=== PATIENT | female | born 1950 | race Caucasian/White ===

== ENCOUNTER → 2018-05-07 13:13 | Outpatient (CLI) | payer MEDICAID, SELFPAY ==
[2018-05-07 12:27] VITALS: BMI 26.9
--- NOTE | 2018-05-07 13:18 | RAD_ITS ---
STUDY: X-RAY CHEST REASON FOR EXAM: Female, 68 years old. Cough since January. Shortness of breath. Chest pain. TECHNIQUE: PA and lateral views of the chest. COMPARISON: Comparison is made with prior study dated August 21, 2015. FINDINGS: Hyperinflation. There is no demonstrated pleural abnormality. Normal size heart. Normal mediastinum and phillip. Normal visualized pulmonary arteries. There is atherosclerotic calcification of the aortic arch with tortuosity. There are degenerative changes of the visualized thoracic spine. Normal visualized ribs, clavicles, and shoulders. There is no demonstrated abnormality of the visualized soft tissue structures of the upper abdomen. RAD/Chest PA and Lateral IMPRESSION: Hyperinflation. Electronically Signed: Khadar Ponce MD at 13:57 EST Tel [phone], Service support ,
--- OUTSIDE RECORDS SUMMARY | 2018-08-09 | XMS RPT_ITS ---
:1950 Author Organization OHIP Care Team Providers Name Role Phone Renny Gar Attending Unavailable Renny Gar Referring Unavailable Renny Gar Primary Care Unavailable Beatriz Paarda Attending Unavailable Renny Gar Referring Unavailable Beatriz Parada Attending Unavailable Beatriz Parada Referring Unavailable Renny Gar Primary Care Unavailable Karyn Adams Attending Unavailable Niels Cordoba Attending Unavailable Renny Gar Referring Unavailable Renny Gar Primary Care Unavailable Beatriz Parada Attending Unavailable Renny Gar Referring Unavailable PROBLEMS PROBLEMS DATE TYPE CONDITION / CODE ATTENDING STATUS SOURCE 05/07/2018 Unknown R05 - Cough / [place], Active [place] R05(ICD-10) [facility] Repository 11/05/2017 Unknown R55 - Syncope and [place], Active [place] collapse / [facility] R55(ICD-10) Hospital Repository 11/05/2017 Unknown I49.1 - Atrial [place], Active [place] premature [facility] / Hospital I49.1(ICD-10) Repository 11/05/2017 Unknown E78.5 - [place], Active [place] Hyperlipidemia, [facility] unspecified / Hospital E78.5(ICD-10) Repository 11/05/2017 Unknown I10 - Essential [place], Active [place] (primary) [facility] hypertension / Hospital I10(ICD-10) Repository 07/11/2017 Admitting Disorder of thyroid, Rin, Active [facility] unspecified / [facility] E07.9(ICD-10) Repository PROCEDURES PROCEDURES No Procedure Records FoundRESULTS RESULTS PULMONARY VISIT REPORT Observed: 05/22/2018 Status: F Source: [place] 4:00 PM [facility] REPOSITORY [facility] [place] [address] [place] [address] OFFICE VISIT Date of Service: 05/22/18 MR#: [id number] Acct: [id number] Name: RAVI DEVLIN Rep #: [id number] : 1950 Provider: Beatriz Parada Age/Sex: 68/F [place] [facility] [place] Status: Signed Assessment AND Plan Problems 1. Cough R05 Plan Improved. No new for further medications, no maintenance medications. Patient can follow-up as needed. Contacted cardiology regarding chest burning and patient will follow up next week. Encouraged to go to the emergency department if symptoms worsen. HPI 2 W FU: Chief Complaint: Cough HPI Comments Details: This patient presents the office today to follow-up after recently being treated for bronchitis. She is amatory currently in room air. She states that her symptoms are significantly improved. Her shortness of breath is only present when walking up steps. She does occasionally have wheezing and chest tightness, most frequently when she is lying flat at night. She completed the prednisone taper as prescribed. She also completed the Dymista and stated that it was successful at controlling her postnasal drip and fortunately did not cause her a bloody nose as some previous nasal steroids have done. She also reports that Dymista did not cause her headache. She was pleased with the results. She does report that she has been experiencing a burning sensation in her chest for the past 3 weeks. She states that the burning is constant, nothing relieves it. She also reports that her blood pressure has been elevated when she is checking at home. On it was found to be 186/148 on her home device. It was also elevated on May 15 and then again on May 17. She states that she was having palpitations also at the time but did not notify her financial report service sales agent or her PCP as it was a holiday. She denies any lower extremity edema. She denies that the chest burning radiated anywhere. See complete review of systems. 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 Accompanied by: Self Is patient in pain?: No Allergies niacin Allergy (Severe, Verified 05/22/18 11:34) flushing amitriptyline [From Elavil] Adverse Reaction (Severe, Verified 05/22/18 11:34) Jaundice codeine Adverse Reaction (Severe, Verified 05/22/18 11:34) emesis nabumetone [From Relafen] Adverse Reaction (Severe, Verified 05/22/18 11:34) hematuria propoxyphene [From Darvon] Adverse Reaction (Severe, Verified 05/22/18 11:34) GERD pramipexole [From Mirapex] Adverse Reaction (Unknown, Verified 05/22/18 11:34) Unknown quinine Adverse Reaction (Verified 05/22/18 11:34) Other ropinirole HCl [From Requip] Adverse Reaction (Verified 05/22/18 11:34) Other Medications Albuterol Inhaler [Ventolin Hfa (SP)] 2 puff INHALATION Q6H PRN PRN 08/21/15 [History Confirmed 05/22/18] Lisinopril 30 mg PO DAILY 08/21/15 [History Confirmed 05/22/18] Pentazocine HCl/Naloxone HCl [Pentazocine-Naloxone Tablet] 25 mg PO 4X/DAY PRN PRN 08/21/15 [History Confirmed 05/22/18] Rosuvastatin Calcium [Crestor] 20 mg PO DAILY 08/21/15 [History Confirmed 05/22/18] acyclovir 800 mg tablet 800 mg PO Q6H PRN tab 11/01/17 [History Confirmed 05/22/18] calcium citrate-vitamin D3 315 mg-200 unit tablet 1 tab PO QDAY tab 11/01/17 [History Confirmed 05/22/18] celecoxib 100 mg capsule 200 mg PO BID cap 11/01/17 [History Confirmed 05/22/18] multivitamin tablet 1 tab PO QDAY 11/01/17 [History Confirmed 05/22/18] omeprazole 20 mg capsule,delayed release 20 mg PO QDAY 11/01/17 [History Confirmed 05/22/18] prednisolone acetate 1 % eye drops,suspension 1 drp OPHTHALMIC Q6H PRN 11/01/17 [History Confirmed 05/22/18] amlodipine 5 mg tablet 5 mg PO QDAY PRN 11/05/17 [History Confirmed 05/22/18] hydrochlorothiazide 12.5 mg tablet 12.5 mg PO QDAY PRN 11/05/17 [History Confirmed 05/22/18] methimazole 5 mg tablet 2.5 mg PO DAILY tab 11/05/17 [History Confirmed 05/22/18] albuterol sulfate 2.5 mg/3 mL (0.083 %) solution for nebulization 2.5 mg INHALATION Q4H PRN 05/07/18 [History Confirmed 05/22/18] prednisone 10 mg tablet 10 mg PO QDAY #30 tab 05/10/18 [Rx Confirmed 05/22/18] metoprolol tartrate 25 mg tablet 25 mg PO BID #180 tab 05/22/18 [Rx] [facility] Medical History Premature atrial contractions (Acute) Hypertension (Chronic) Hyperlipidemia (Chronic) Syncope and collapse (Acute) Asthma (Acute) Diverticulosis (Acute) GERD (gastroesophageal reflux disease) (Acute) Hyperthyroidism (Acute) Juvenile rheumatoid arthritis (Acute) Peripheral vertigo (Acute) TMJ (temporomandibular joint disorder) (Acute) Surgical History History of cholecystectomy (Resolved) History of foot surgery (Resolved) History of total hysterectomy (Resolved) Family History Mother CAD (coronary artery disease) Diabetes Hypertension Father Hypertension Social History Smoking Status: Never smoker Review of Systems Const CONSTITUTIONAL: Positive fatigue; negative anorexia, body ache, chills, daytime sleepiness, fever(s), night sweats, oral thrush, stops breathing during sleep, weight loss, sleeping in chair, weight loss, weight gain, frequent colds, seasonal allergies, other, headache(s) or orthopnea EETM Ear Nose Throat Mouth: Positive hearing normal, hoarseness and post nasal drip; negative hard of hearing, dry mouth in morning, change in vision, itchy eyes, eye pain, swallowing Difficulty, ear pain, nose bleed, headache(s), mouth pain, nasal congestion, nasal discharge, sinus pain, sinus pressure, sore throat or other Cardio Cardiovascular: Negative chest pain, chest pain at rest, chest pain with activity, irregular heart rhythm, edema, shortness of breath when lying down, palpitations, murmur or other Resp Respiratory: Positive as per HPI, shortness of breath shortness of breath: Positive with activity, wheezing, cough cough: Positive productive color: Positive clear and non-productive, chest tightness and inhalers; negative pain with cough, chest congestion, pain on inspiration, increase use of rescue inhalers, snoring, apnea or other Gastro Gastrointestional: Negative bloody stools, change in appetite, difficulty swallowing, reflux, hematemesis, melena stool, loose stool, constipation or other Genitourinary: Negative blood in urine, nocturia, pain with urination or other Musc Musculoskeletal: Negative body pain, back pain, neck pain or other Skin/Breast Skin/Breast: Negative dry skin, itching, rash, unusual bruising, breast lump or other Neuro Neurological: Negative restless legs, confusion, weakness or other Psych Psychocological: Negative abnormal sleep pattern, anxiety, thoughts of hurting self/others, hopelessness or other Lymph Lymphatic: Negative easy bleeding, easy bruising, swollen lymph nodes or other Exam Const Constitutional: Positive conversant, cooperative, in no acute respiratory distress, healthy appearing, well developed, well nourished and good hygiene Head Head: Positive normocephalic and atraumatic; negative cyanosis of lips/distal nose Eyes Eye: Positive clear conjunctiva; negative nystagmus or scleral abnormality Ears Ear: Positive hearing normal and external ears normal; negative hard of hearing Nose Nose: Positive external nose normal and no nasal discharge; negative epistaxis Mouth Mouth: Positive post nasal drip, oral mucosae normal, no lesions, good dentition and posterior oropharynx is adequate; negative malodorous breath or oral thrush present Mallampati Score: I: Mallampati Score Neck Neck: Positive normal visual inspection, full ROM and trachea midline; negative lymphadenopathy, JVD or tender Chest Wall Chest: Positive normal inspection of the chest and symmetric chest movement; negative increased A/P diameter Resp lung sounds: Positive clear to auscultation, good air exchange, normal expiratory time and normal respiratory effort; negative diminished, wheezes, rhonchi, rales, dullness to percussion or wheeze present on forced exhalation Cardio Cardiac: Positive regular rate, regular rhythm, S1 normal and S2 normal; negative murmur GI GI: Positive normal to inspection; negative distended Genitourinary: Positive deferred Musc Musculoskeletal: Positive steady gait and ROM normal; negative kyphosis or scoliosis Skin Pulmonary Skin Exam: Positive intact; negative rash Pulses Pulse: Yes pulses normal x4 extremities Extremities Extremities: Yes capillary refill normal, No clubbing, No cyanosis, No edema Neuro Neurologic: Yes conversant, Yes no focal neuro deficits, Yes normal concentration, Yes understands questions, Yes cooperative, Yes normal cognition, Yes normal coordination, No tremor Lymph Lymphatic: No lymphadenopathy, No tenderness, No cervical adenopathy Psych Appearance: Positive grossly normal, eye contact and well kempt Mental Status: Positive mental status grossly normal Mood: Positive congruent mood Affect: Positive normal affect Coding Level of Care Code Off vis,est,level 3 Diagnoses Cough R05 05/22/18 1600 <Electronically signed by Beatriz GILES> Date Beatriz GILES Cosigner Signature: Date (if applicable) CC: Renny Gar DO Observed: 05/07/2018 Status: F Source: [place] CULTURE, [place] 2:59 PM [facility] Gram Stain Specimen is mostly saliva and as such may not represent an accurate assesment of the patients' pulmonary/respiratory condition. Acceptable Specimen? Acceptable Specimen(Evaluation not needed) Gram Stain Rare White Blood Cells Rare Epithelial cells Rare Gram positive cocci Resp. Culture Mixed normal respiratory heath. No Haemophilus, Streptococcus pneumoniae, beta-hemolytic Streptococcus or Staphylococcus aureus isolated. Performed By: #### [id number] #### [facility] [address] [place], [address] CHEST PA AND LATERAL Observed: 05/07/2018 Status: F Source: [place] 1:18 PM [facility] Imaging Services [address] [place] [address] Chest PA and Lateral MR#: [id number] Acct: [id number] Name: RAVI DEVLIN Rep #: [id number] : 1950 F 68 From: Khadar Ponce MD PCP: Renny Gar DO Status: REG CLI Study: Chest PA and Lateral Date of Exam: 05/07/18 Exam# [id number] Ordering Dr: Beatriz Parada STUDY: X-RAY CHEST REASON FOR EXAM: Female, 68 years old. Cough since January. Shortness of breath. Chest pain. TECHNIQUE: PA and lateral views of the chest. COMPARISON: Comparison is made with prior study dated August 21, 2015. FINDINGS: Hyperinflation. There is no demonstrated pleural abnormality. Normal size heart. Normal mediastinum and phillip. Normal visualized pulmonary arteries. There is atherosclerotic calcification of the aortic arch with tortuosity. There are degenerative changes of the visualized thoracic spine. Normal visualized ribs, clavicles, and shoulders. There is no demonstrated abnormality of the visualized soft tissue structures of the upper abdomen. RAD/Chest PA and Lateral IMPRESSION: Hyperinflation. Electronically Signed: Khadar Ponce MD at 13:57 EST Tel [phone], Service support , CC: Renny Gar DO; Beatriz Parada Land Conservation Specialist: Signed PULMONARY VISIT REPORT Observed: 05/07/2018 Status: F Source: [place] 1:14 PM [facility] [place] [address] [place] [address] OFFICE VISIT Date of Service: 05/07/18 MR#: [id number] Acct: [id number] Name: RAVI DEVLIN Rep #: [id number] : 1950 Provider: Beatriz Parada Age/Sex: 68/F [place] [facility] [place] Status: Signed Assessment AND Plan Problems 1. Cough R05 2. PND (post-nasal drip) R09.82 Plan New. Patient has been treated multiple times for bronchitis in the past 10 weeks. Symptoms seem to improve slightly and then recur. Checking a sputum culture and sensitivity today to determine if an antibiotic is appropriate. Chest x-ray today to rule out pneumonia given that she has had fevers and cough. Did obtain an eye ox in the office today which does not support the need for a prednisone burst or taper. No additional inhalers at this time. Placing on Dymista, as she has tried and failed Flonase in the past. Follow-up in 2 weeks to discuss test results and see how she is responded to the new medication. Contact the office with any new or worsening symptoms in the meantime. Orders Orders: Medications New: Plan Detail Follow Up 2 Weeks (CSM) HPI INHALERS ARE NOT WORKING: Chief Complaint: Cough HPI Comments Details: Patient presents the office today for an acute visit regarding cough. She states that unfortunately she has been sick since the end of January and has received 3 different antibiotics and prednisone. She states that after completing the antibiotics her symptoms would improve for approximately 4-5 days and then returned. She currently has a cough that is productive of anywhere from clear to yellow to brown to green sputum. She states that it takes like blood. She has a worsening in shortness of breath. She experiences lightheadedness occasionally with this persistent cough. She has tried to use her rescue inhaler but it did not relieve her shortness of breath. She did try Tessalon Perles which provide her with some relief of the cough for approximately 1 hour. She has had a fever here and there, not present today. She denies any body aches or chills. She denies any wheezing or chest tightness. 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 See complete review of systems. Intake Vital Signs05/07/18 Height 5 ft 5.5 in 05/07/18 Weight: 164 lb Intake Visit Reasons: INHALERS ARE NOT WORKING Accompanied by: Mother Allergies niacin Allergy (Severe, Verified 05/07/18 12:28) flushing amitriptyline [From Elavil] Adverse Reaction (Severe, Verified 05/07/18 12:28) Jaundice codeine Adverse Reaction (Severe, Verified 05/07/18 12:28) emesis nabumetone [From Relafen] Adverse Reaction (Severe, Verified 05/07/18 12:28) hematuria propoxyphene [From Darvon] Adverse Reaction (Severe, Verified 05/07/18 12:28) GERD pramipexole [From Mirapex] Adverse Reaction (Unknown, Verified 05/07/18 12:28) Unknown quinine Adverse Reaction (Verified 05/07/18 12:28) Other ropinirole HCl [From Requip] Adverse Reaction (Verified 05/07/18 12:28) Other Medications Albuterol Inhaler [Ventolin Hfa (SP)] 2 puff INHALATION Q6H PRN PRN 08/21/15 [History Confirmed 05/07/18] Lisinopril 30 mg PO DAILY 08/21/15 [History Confirmed 05/07/18] Metoprolol Tartrate 25 mg PO BID 08/21/15 [History Confirmed 05/07/18] Pentazocine HCl/Naloxone HCl [Pentazocine-Naloxone Tablet] 25 mg PO 4X/DAY PRN PRN 08/21/15 [History Confirmed 05/07/18] Rosuvastatin Calcium [Crestor] 20 mg PO DAILY 08/21/15 [History Confirmed 05/07/18] acyclovir 800 mg tablet 800 mg PO Q6H PRN tab 11/01/17 [History Confirmed 05/07/18] calcium citrate-vitamin D3 315 mg-200 unit tablet 1 tab PO QDAY tab 11/01/17 [History Confirmed 05/07/18] celecoxib 100 mg capsule 200 mg PO BID cap 11/01/17 [History Confirmed 05/07/18] multivitamin tablet 1 tab PO QDAY 11/01/17 [History Confirmed 05/07/18] omeprazole 20 mg capsule,delayed release 20 mg PO QDAY 11/01/17 [History Confirmed 05/07/18] prednisolone acetate 1 % eye drops,suspension 1 drp OPHTHALMIC Q6H PRN 11/01/17 [History Confirmed 05/07/18] amlodipine 5 mg tablet 5 mg PO QDAY PRN 11/05/17 [History Confirmed 05/07/18] hydrochlorothiazide 12.5 mg tablet 12.5 mg PO QDAY PRN 11/05/17 [History Confirmed 05/07/18] methimazole 5 mg tablet 2.5 mg PO DAILY tab 11/05/17 [History Confirmed 05/07/18] albuterol sulfate 2.5 mg/3 mL (0.083 %) solution for nebulization 2.5 mg INHALATION Q4H PRN 05/07/18 [History Confirmed 05/07/18] [facility] Medical History Premature atrial contractions (Acute) Hypertension (Chronic) Hyperlipidemia (Chronic) Syncope and collapse (Acute) Asthma (Acute) Diverticulosis (Acute) GERD (gastroesophageal reflux disease) (Acute) Hyperthyroidism (Acute) Juvenile rheumatoid arthritis (Acute) Peripheral vertigo (Acute) TMJ (temporomandibular joint disorder) (Acute) Surgical History History of cholecystectomy (Resolved) History of foot surgery (Resolved) History of total hysterectomy (Resolved) Family History Mother CAD (coronary artery disease) Diabetes Hypertension Father Hypertension Social History Smoking Status: Never smoker Review of Systems Const CONSTITUTIONAL: Negative anorexia, body ache, chills, daytime sleepiness, fever(s), night sweats, oral thrush, stops breathing during sleep, weight loss, sleeping in chair, fatigue, weight loss, weight gain, frequent colds, seasonal allergies, other, headache(s) or orthopnea EETM Ear Nose Throat Mouth: Positive hearing normal and post nasal drip; negative hard of hearing, hoarseness, dry mouth in morning, change in vision, itchy eyes, eye pain, swallowing Difficulty, ear pain, nose bleed, headache(s), mouth pain, nasal congestion, nasal discharge, sinus pain, sinus pressure, sore throat or other Cardio Cardiovascular: Negative chest pain, chest pain at rest, chest pain with activity, irregular heart rhythm, edema, shortness of breath when lying down, palpitations, murmur or other Resp Respiratory: Positive as per HPI; negative shortness of breath, pain with cough, wheezing, chest congestion, cough, chest tightness, pain on inspiration, inhalers, increase use of rescue inhalers, snoring, apnea or other Gastro Gastrointestional: Negative bloody stools, change in appetite, difficulty swallowing, reflux, hematemesis, melena stool, loose stool, constipation or other Genitourinary: Negative blood in urine, nocturia, pain with urination or other Musc Musculoskeletal: Negative body pain, back pain, neck pain or other Skin/Breast Skin/Breast: Negative dry skin, itching, rash, unusual bruising, breast lump or other Neuro Neurological: Negative restless legs, confusion, weakness or other Psych Psychocological: Negative abnormal sleep pattern, anxiety, thoughts of hurting self/others, hopelessness or other Lymph Lymphatic: Negative easy bleeding, easy bruising, swollen lymph nodes or other Exam Const Constitutional: Positive conversant, cooperative, in no acute respiratory distress, well developed, well nourished and good hygiene Head Head: Positive normocephalic and atraumatic; negative cyanosis of lips/distal nose Eyes Eye: Positive clear conjunctiva; negative nystagmus or scleral abnormality Ears Ear: Positive hearing normal and external ears normal; negative hard of hearing Nose Nose: Positive external nose normal and no nasal discharge; negative epistaxis Mouth Mouth: Positive post nasal drip, oral mucosae normal, no lesions and posterior oropharynx is adequate; negative malodorous breath or oral thrush present Mallampati Score: I: Mallampati Score Neck Neck: Positive normal visual inspection, full ROM and trachea midline; negative lymphadenopathy, JVD or tender Chest Wall Chest: Positive normal inspection of the chest and symmetric chest movement; negative increased A/P diameter Resp lung sounds: Positive clear to auscultation, good air exchange, normal expiratory time and normal respiratory effort; negative diminished, wheezes, rhonchi, rales, dullness to percussion or wheeze present on forced exhalation Cardio Cardiac: Positive regular rate, regular rhythm, S1 normal and S2 normal; negative murmur GI GI: Positive normal to inspection; negative distended Genitourinary: Positive deferred Musc Musculoskeletal: Positive steady gait and ROM normal; negative kyphosis or scoliosis Skin Pulmonary Skin Exam: Positive intact; negative rash Pulses Pulse: Yes pulses normal x4 extremities Extremities Extremities: Yes capillary refill normal, No clubbing, No cyanosis, No edema Neuro Neurologic: Yes conversant, Yes no focal neuro deficits, Yes normal concentration, Yes understands questions, Yes cooperative, Yes normal cognition, Yes normal coordination, No tremor Lymph Lymphatic: No lymphadenopathy, No tenderness, No cervical adenopathy Psych Appearance: Positive grossly normal, eye contact and well kempt Mental Status: Positive mental status grossly normal Mood: Positive congruent mood Affect: Positive normal affect Office Procedures NIOX NIOX Result NIOX: 12 Coding Level of Care Code Off vis,est,level 4 Diagnoses Cough R05 PND (post-nasal drip) R09.82 05/07/18 1314 <Electronically signed by Beatriz GILES> Date Beatriz GILES Cosigner Signature: Date (if applicable) CC: Renny Gar DO CARDIOLOGY VISIT Observed: 11/05/2017 Status: F Source: [place] 10:08 AM [facility] [address] [place] [address]. [address] [place] [address] OFFICE VISIT Date of Service: 11/05/17 MR#: [id number] Acct: [id number] Name: RAVI DEVLIN Corbin Rep #: [id number] : 1950 Provider: Niels Cordoba MD Age/Sex: 67/F [place] [facility] [place] [facility] [place] Status: Signed HPI HPI Details: RAVI , is a 67 F who presents to the office today for for outpatient cardiovascular follow-up. Is been approximately 1 year since her last outpatient visit. Since that time she has not required additional cardiovascular diagnostic studies or therapeutic intervention. She is not complaining of symptoms of angina pectoris. There has been no episodes of CHF or pulmonary edema. There has been no near syncope or syncope. She has had an occasional palpitation. She states her thyroid has been a challenge . She believes with adjustment of her medication that her thyroid is coming under better control. Intake Vital Signs11/05/17 Height 5 ft 5.5 in 11/05/17 Weight: 158 lb 11/05/17 Body Mass Index (BMI) 25.9 11/05/17 Blood Pressure 138/70 Intake Visit Reasons: 1 Y FU Allergies niacin Allergy (Severe, Verified 11/05/17 09:35) flushing amitriptyline [From Elavil] Adverse Reaction (Severe, Verified 11/05/17 09:35) Jaundice codeine Adverse Reaction (Severe, Verified 11/05/17 09:35) emesis nabumetone [From Relafen] Adverse Reaction (Severe, Verified 11/05/17 09:35) hematuria propoxyphene [From Darvon] Adverse Reaction (Severe, Verified 11/05/17 09:35) GERD pramipexole [From Mirapex] Adverse Reaction (Unknown, Verified 11/05/17 09:35) Unknown quinine Adverse Reaction (Verified 11/05/17 09:35) Other ropinirole HCl [From Requip] Adverse Reaction (Verified 11/05/17 09:35) Other Medications Albuterol Inhaler [Ventolin Hfa (SP)] 2 puff INHALATION Q6H PRN PRN 08/21/15 [History Confirmed 11/05/17] Budesonide/Formoterol 160/4.5 [Symbicort 160/4.5 Mcg Inhaler (SP)] 2 puff INHALATION BID 08/21/15 [History Confirmed 11/05/17] Lisinopril [Lisinopril] 30 mg PO DAILY 08/21/15 [History Confirmed 11/05/17] Metoprolol Tartrate [Metoprolol Tartrate] 25 mg PO BID 08/21/15 [History Confirmed 11/05/17] Pentazocine HCl/Naloxone HCl [Pentazocine-Naloxone Tablet] 25 mg PO 4X/DAY PRN PRN 08/21/15 [History Confirmed 11/05/17] Rosuvastatin Calcium [Crestor] 20 mg PO DAILY 08/21/15 [History Confirmed 11/05/17] acyclovir 800 mg tablet 800 mg PO Q6H PRN tab 11/01/17 [History Confirmed 11/05/17] calcium citrate-vitamin D3 315 mg-200 unit tablet 1 tab PO QDAY tab 11/01/17 [History Confirmed 11/05/17] celecoxib 100 mg capsule 200 mg PO BID cap 11/01/17 [History Confirmed 11/05/17] multivitamin tablet 1 tab PO QDAY 11/01/17 [History Confirmed 11/05/17] omeprazole 20 mg capsule,delayed release 20 mg PO QDAY 11/01/17 [History Confirmed 11/05/17] prednisolone acetate 1 % eye drops,suspension 1 drp OPHTHALMIC Q6H PRN 11/01/17 [History Confirmed 11/05/17] amlodipine 5 mg tablet 5 mg PO QDAY PRN 11/05/17 [History Confirmed 11/05/17] hydrochlorothiazide 12.5 mg tablet 12.5 mg PO QDAY PRN 11/05/17 [History Confirmed 11/05/17] methimazole 5 mg tablet 2.5 mg PO DAILY tab 11/05/17 [History Confirmed 11/05/17] PFSH Medical History Premature atrial contractions (Acute) Hypertension (Chronic) Hyperlipidemia (Chronic) Syncope and collapse (Acute) Asthma (Acute) Diverticulosis (Acute) GERD (gastroesophageal reflux disease) (Acute) Hyperthyroidism (Acute) Juvenile rheumatoid arthritis (Acute) Peripheral vertigo (Acute) TMJ (temporomandibular joint disorder) (Acute) Surgical History History of cholecystectomy (Resolved) History of foot surgery (Resolved) History of total hysterectomy (Resolved) Family History Mother CAD (coronary artery disease) Diabetes Hypertension Father Hypertension Social History Smoking Status: Never smoker ROS Const Const: Negative for fatigue, weakness, weight gain, weight loss, frequent falls or excessive sweating Eyes Eyes: Negative for change in vision, blurry vision or transient loss of vision ENT ENT: Negative for dizziness or balance problems Cardio Chest Pain: No Palpitations: Yes (occasional) Edema: None Muscle aches with walking: None Resp Respiratory: Positive for SOB with activity (up/downstairs HX allergies); negative for SOB at rest GI GI: Negative vomiting or vomiting blood/hematemesis : Negative for hematuria Musc Musc: Negative for balance problems, muscle aches/ myalgia, muscle weakness or joint pain Skin Skin: Negative non-healing lesions or rash Neuro Neuro: Positive for lightheadedness (x1 episode past Sunday, ate peanut butter-BS ok, symptoms resolved); negative for weakness, blurry vision, dizziness, frequent falls or orthostatic symptoms Vaughn Hematologic/Lymphatic: Negative for easy bleeding Endo Endo: Negative for fatigue or excessive sweating Psych Psych: Negative for anxiety or depression Allergy Allergy/Immunology: Negative for hives, Negative for rash Cardiology Exam Const Appearance: cooperative, healthy appearing, comfortable, no acute distress, well developed and well groomed Nutritional Appearance: average body habitus Orientation: alert, awake and oriented x3 Head Head: normal to inspection, normocephalic and atraumatic Ears: hearing grossly normal bilaterally Nose: external nose normal Face and Sinus: face symmetric Mouth: oral mucosae normal Teeth and gingiva: fair dentition Eyes General: appearance normal, both eyes and all related structures Eyelids: eyelids normal Conjunctivae: conjunctivae normal Pupils: PERRL EOM: EOM intact bilaterally Neck Neck: normal visual inspection and full ROM Carotids: normal carotid upstroke Chest Chest inspection: normal inspection of the chest and symmetric chest movement Auscultation: Bilateral: Clear to Auscultation Cardio Palpation: normal PMI Rate: regular rate Rhythm: regular rhythm Heart sounds: S1 normal and S2 normal GI GI: normal to inspection, soft and bowel sounds present Neuro General: alert, awake, oriented x3 and moves all extremities Skin Skin: no rashes or lesions noted Extremities Pulses: Normal: Right Radial Pulse Lower Extremity Edema: None: Bilateral Psych Psychological: normal affect Supplemental Info She did have a transthoracic echocardiogram performed on 08/06/2014. The results are as noted below. InterpLettQn Summary Left ventricular systolic function is normal. The estimated ejection fraction is 60 %. Trivial mitral valve insufficiency. Mild tricuspid valve insufficiency. Mild diffuse aortic valve thickening. Mild focal aortic valve calcification. Trivial pulmonic valve insufficiency. Right ventricular systolic pressure estimated to be 29 mmHg. She did have a 48-hour Holter monitor performed on 08/21/2015. The results are as noted below. AVERAGE HEART RATE WAS 72 BPM IN SINUS RHYTHM. MINIMUM HEART RATE WAS 538PM IN SINUS BRADYCARDIA RECORDED AT 3:48:47AM DAY 2. MAXIMUM HEART RATE WAS 110 BPM IN SINUS TACHYCARDIA RECORDED AT 608:25 AM DAY 2. THERE WERE NO VENTRICULAR ECTOPIC BEATS. THERE WEREATOTAL OF 79 SUPRAVENTRICULAR ECTOPIC BEATS. RARE EPISODES OF WENCKEBAGH (MOBITZ I). THE LONGEST R-R INTERVAL WAS 1.3 SECONDS. THERE WAS NO ATRIAL FIBRILLATION OR VENTRICULAR TACHYCARDIA. PT KEPT A DIARY AND NOTED SHORTNESS OF BREATH AND LIGHTHEADEDNESS WHICH DID NOT CORRELATE WITH STRIPS. Assessment AND Plan 1. Syncope and collapse R55 Plan At the present time she has had no recurrent near syncopal or syncopal events. She appears to be doing well with her current dietary adjustments and medical therapy. This will be continued. 2. Premature atrial beat I49.1 Plan She does have a rare palpitation. This may be related to her underlying ectopy. Again she will continue her current medical therapy and follow-up. 3. Hyperlipidemia, unspecified hyperlipidemia type E78.5 Plan She states that she will be having her lipids checked in the near future. A copy of her lipid profile would be appreciated for continuity of care. 4. Hypertension, unspecified type I10 Plan Her blood pressure appears to be reasonably well-controlled at this time. Again she will continue medical management and follow-up. Plan Detail Additional Comments Overall she will be scheduled for an outpatient visit approximately 1 year unless needed sooner. Thank you for allowing me to participate in the care of your patient. Please don't hesitate to call if any issues arise. This note was generated using a voice recognition system and there may be incorrect words, spelling or punctuation that were not noted when reviewing the office note prior to saving. Follow Up 1 Year (PFM) Coding Level of Care Code Off vis,est,level 3 Diagnoses Syncope and collapse R55 Premature atrial beat I49.1 Hyperlipidemia, unspecified hyperlipidemia type E78.5 Hyperlipidemia type: unspecified Hypertension, unspecified type I10 Hypertension type: unspecified Coding Level of Care Code Off vis,est,level 3 Diagnoses Syncope and collapse R55 Premature atrial beat I49.1 Hyperlipidemia, unspecified hyperlipidemia type E78.5 Hyperlipidemia type: unspecified Hypertension, unspecified type I10 Hypertension type: unspecified 11/05/17 1008 <Electronically signed by Niels Cordoba MD> Date Niels Cordoba MD Cosigner Signature: Date (if applicable) CC: Renny Gar DO ALLERGIES ALLERGIES DATE TYPE / NAME / CODE REACTION SEVERITY SOURCE CODE 05/22/2018 Drug ropinirole Other Unknown [place] Allergy/41 HCl/[id number](RXNO Community [id number]) Repository 05/22/2018 Drug niacin/[id number](R FLUSHING SV [place] Allergy/41 XNORM) Community [id number]([facility]) Repository 05/22/2018 Drug codeine/[id number]( emesis SV [place] Allergy/41 RXNORM) Community [id number]([facility]) Repository 05/22/2018 Drug propoxyphene/Q55096 GERD SV [place] Allergy/41 1574(RXNORM) Community 1809980([facility]) Repository 05/22/2018 Drug quinine/[id number]( Other Unknown [place] Allergy/41 RXNORM) Community 1769964([facility]) Repository 05/22/2018 Drug nabumetone/[id number] hematuria SV [place] Allergy/41 22(RXNORM) Community 3153948([facility]) Repository 05/22/2018 Drug amitriptyline/F0060 jaundice SV [place] Allergy/41 08439(RXNORM) Community 3223420([facility]) Repository 05/22/2018 Drug pramipexole/P715964 Unknown Unknown [place] Allergy/41 721(RXNORM) Community 4359601([facility]) Repository 08/21/2015 Drug ciprofloxacin Other Unknown [place] Allergy/41 HCl/[id number](RXNO Community 1227340([facility]) Repository 08/21/2015 Drug Penicillins/X493945 Other Unknown [place] Allergy/41 476(RXNORM) [facility] [id number]([facility]) Repository 08/21/2015 Drug ciprofloxacin/F0060 Other Unknown [place] Allergy/41 17925(RXNORM) [facility] [id number]([facility]) Repository ENCOUNTERS ENCOUNTERS ADMIT/DISCHARGE ACCOUNT NUMBER ADMITTING ENCOUNTER LOCATION SOURCE CLASS 05/22/2018/05/22/19 [id number] Ambulatory BMSBuilding: [place] 19 BMS.[facility] Repository 05/07/2018 [id number] Ambulatory [place] [facility] ding:RAD Repository 05/07/2018/05/07/20 [id number] Ambulatory BMSBuilding: [place] 18 BMS.[facility] Repository 11/05/2017/11/06/19 [id number] Ambulatory BMSBuilding: [place] 18 BMS.[facility] Repository 11/01/2017 [id number] Ambulatory BMSBuilding: [place] BMS.[facility] Repository 07/11/2017 [id number] Ambulatory [facility] Repository PAYERS PAYERS ENCOUNTER GUARANTOR PAYER SUBSCRIBER SOURCE 05/22/2018 RAVI Alaniz Primary Insurance:[facility] RAVI Berriososter [id number] [facility] SAUTORDOB: [place], [place] Number: [id number] [facility] [address]Zke: 330 [id number] Repository [phone] () Date:[id number] [address]XR: 05/22/2018 Secondary NOT GIVENUNK [place] Insurance:SELF PAY [facility] Number: Effective Repository Date:2018-05-20 05/07/2018 RAVI Alaniz Primary Insurance:[facility] RAVI Alaniz [place] [id number] [facility] [place] [place] Number: [id number] [facility] [address]Ygj: 330 [id number] Repository [phone] () Date:[id number] [address]XQ: 05/07/2018 Secondary NOT GIVENUNK [place] Insurance:SELF PAY [facility] Number: Effective Repository Date:2018-05-07 05/07/2018 RAVI Alaniz Primary Insurance:[facility] RAVI Alaniz [place] [id number] [facility] SAILORDOB: [place], [place] Number: [id number] Hospital [address]Ltp: [phone]) [id number] Repository [phone] () Date:[id number] [address] [place] [address]IE: 05/07/2018 Secondary NOT GIVENUNK [place] Insurance:SELF PAY [facility] Number: Effective Repository Date:2018-05-06 11/05/2017 RAVI Alaniz Primary Insurance:[facility] RAVI Alaniz [place] [id number] [facility] SAILORDOB: [facility], [facility]: [id number] [address]Lwx: [id number] Repository Date:[id number] [address] () [address] [place] [address]ST: 11/05/2017 Secondary NOT GIVENUNK [place] Insurance:SELF PAY [facility] Number: Effective Repository Date:2017-05-10 11/01/2017 Ravi Alaniz Primary Insurance:[facility] Ravi Alaniz [place] [id number] [facility] SailorDOB: [facility], Number: [id number] [address]Jgr: [id number] Repository Date:[id number] [address] () [address] [place] [address]85[address]OX: 11/01/2017 Secondary NOT GIVENUNK [place] Insurance:SELF PAY [facility] Number: Effective Repository Date:2017-11-01 07/11/2017 Ravi Alaniz Primary Ravi Alaniz [facility] SailorDOB: Insurance:[place] SailorDOB: System [id number] [employer] [id number] [facility] Number: Effective [place], [place] Date: [id number]: ()
== END ==
PROVIDERS: Family Provider Family Medicine; PCP Family Medicine; Referring Provider Nurse Practitioner Acute Care; Visit Provider Nurse Practitioner Acute Care
DX: R05 Cough (principal)
CPT/HCPCS: 71046; 87070; 87205

== ENCOUNTER → 2019-04-08 13:21 | Outpatient (CLI) | payer MEDICAID, SELFPAY ==
[2018-12-04 14:28] VITALS: BMI 27.0
== END ==
PROVIDERS: Family Provider Student in an Organized Health Care Education/Training Program; PCP Student in an Organized Health Care Education/Training Program; Referring Provider Nurse Practitioner Acute Care; Visit Provider Nurse Practitioner Acute Care
DX: R05 Cough (principal)
CPT/HCPCS: 87070; 87205

== ENCOUNTER → 2019-11-06 06:56 | Outpatient (CLI) | payer MEDICAID, SELFPAY ==
[2018-12-04 14:28] VITALS: BMI 27.0
[2019-11-06 08:35] LABS: AST(SGOT) 17 U/L (15-37); Alanine Aminotransfer ALT/SGPT 20 U/L (13-56); Albumin, Serum 4.1 g/dL (3.2-5.0); Alkaline Phosphatase 125 U/L (45-117); Anion Gap 9 (5-15); BUN 22 mg/dL (7-18); BUN/Creat Ratio 18.5 RATIO (10-20); Bilirubin, Direct 0.18 mg/dL (0.00-0.30); Calcium,Total 9.9 mg/dL (8.5-10.1); Chloride 100 mmol/L (98-107); Cholesterol 245 mg/dL (200); Creatinine, Serum 1.19 mg/dL (0.55-1.02); EST Glomerular Filtration Rate 48 mL/min (>60); Est Glom Filt Rate - Afr Amer 58 mL/min (>60); Globulin 4.3 g/dL (2.2-4.2); Glucose 89 mg/dL (74-106); High Density Lipoprotein 44 mg/dL; Potassium 3.8 mmol/L (3.5-5.1); Protein, Total 8.4 g/dL (6.4-8.2); Sodium Level 138 mmol/L (136-145); Triglycerides 243 mg/dL; Very Low Density Lipoprotein 49 mg/dL (5-40)
== END ==
PROVIDERS: PCP Student in an Organized Health Care Education/Training Program; Referring Provider Nurse Practitioner Family; Visit Provider Nurse Practitioner Family
DX: I10 Essential (primary) hypertension (principal); E78.5 Hyperlipidemia, unspecified; I49.1 Atrial premature depolarization
CPT/HCPCS: 36415; 80048; 80061; 80076

== ENCOUNTER → 2019-11-27 07:01 | Outpatient (CLI) | payer MEDICAID, SELFPAY ==
[2018-12-04 14:28] VITALS: BMI 27.0
[2019-11-27 08:21] LABS: AST(SGOT) 16 U/L (15-37); Alanine Aminotransfer ALT/SGPT 20 U/L (13-56); Albumin, Serum 3.8 g/dL (3.2-5.0); Alkaline Phosphatase 112 U/L (45-117); Bilirubin, Direct 0.15 mg/dL (0.00-0.30); Cholesterol 198 mg/dL (200); Globulin 4.2 g/dL (2.2-4.2); High Density Lipoprotein 39 mg/dL; Triglycerides 234 mg/dL; Very Low Density Lipoprotein 47 mg/dL (5-40)
== END ==
PROVIDERS: PCP Student in an Organized Health Care Education/Training Program; Referring Provider Nurse Practitioner Family; Visit Provider Nurse Practitioner Family
DX: E78.5 Hyperlipidemia, unspecified (principal)
CPT/HCPCS: 36415; 80061; 80076

== ENCOUNTER → 2020-03-02 08:06 | Outpatient (CLI) | payer MEDICAID, SELFPAY ==
[2020-02-24 13:26] VITALS: BMI 27.0
[2020-03-02 10:13] LABS: AST(SGOT) 21 U/L (15-37); Alanine Aminotransfer ALT/SGPT 28 U/L (13-56); Alkaline Phosphatase 98 U/L (45-117); Bilirubin, Direct 0.18 mg/dL (0.00-0.30); Cholesterol 205 mg/dL (200); High Density Lipoprotein 56 mg/dL; Triglycerides 171 mg/dL; Very Low Density Lipoprotein 34 mg/dL (5-40)
== END ==
PROVIDERS: PCP Student in an Organized Health Care Education/Training Program; Referring Provider Internal Medicine Cardiovascular Disease; Visit Provider Internal Medicine Cardiovascular Disease
DX: E78.00 Pure hypercholesterolemia, unspecified (principal)
CPT/HCPCS: 36415; 80061; 80076

== ENCOUNTER → 2020-04-07 08:40 | Outpatient (CLI) | payer MEDICAID, SELFPAY ==
[2020-02-24 13:26] VITALS: BMI 27.0
[2020-04-07 09:31] LABS: Free T3 2.4 pg/mL (2.18-3.98); T4 Free Direct 0.75 ng/dL (0.76-1.46); Thyroid Stim Hormone (TSH) 3.28 uIU/mL (0.358-3.74)
== END ==
PROVIDERS: PCP Student in an Organized Health Care Education/Training Program; Referring Provider Internal Medicine Endocrinology, Diabetes & Metabolism; Visit Provider Internal Medicine Endocrinology, Diabetes & Metabolism
DX: E05.00 Thyrotoxicosis with diffuse goiter without thyrotoxic crisis or storm (principal)
CPT/HCPCS: 36415; 84439; 84443; 84481

== ENCOUNTER → 2020-06-12 08:53 | Outpatient (CLI) | payer MEDICAID, SELFPAY ==
[2020-04-30 14:06] VITALS: BMI 27.0
[2020-06-12 10:12] LABS: AST(SGOT) 16 U/L (15-37); Alanine Aminotransfer ALT/SGPT 20 U/L (13-56); Albumin, Serum 3.6 g/dL (3.2-5.0); Alkaline Phosphatase 96 U/L (45-117); Bilirubin, Direct 0.12 mg/dL (0.00-0.30); Cholesterol 197 mg/dL (200); Globulin 3.8 g/dL (2.2-4.2); High Density Lipoprotein 42 mg/dL; Protein, Total 7.4 g/dL (6.4-8.2); Triglycerides 299 mg/dL; Very Low Density Lipoprotein 60 mg/dL (5-40)
[2020-06-12 10:33] LABS: Free T3 2.6 pg/mL (2.18-3.98); T4 Free Direct 0.74 ng/dL (0.76-1.46); Thyroid Stim Hormone (TSH) 1.93 uIU/mL (0.358-3.74)
== END ==
PROVIDERS: Internal Medicine Cardiovascular Disease; PCP Student in an Organized Health Care Education/Training Program; Referring Provider Internal Medicine Endocrinology, Diabetes & Metabolism; Visit Provider Internal Medicine Endocrinology, Diabetes & Metabolism
DX: E05.00 Thyrotoxicosis with diffuse goiter without thyrotoxic crisis or storm (principal); E78.5 Hyperlipidemia, unspecified
CPT/HCPCS: 36415; 80061; 80076; 84439; 84443; 84481

== ENCOUNTER → 2020-07-21 09:19 | Outpatient (CLI) | payer MEDICAID, SELFPAY ==
[2020-07-21 09:19] VITALS: BMI 27.0
[2020-07-21 12:28] LABS: Vitamin D,25 Hydroxy 10.1 ng/mL
[2020-07-21 12:32] LABS: Anion Gap 7 (5-15); BUN 17 mg/dL (7-18); BUN/Creat Ratio 16.5 RATIO (10-20); Calcium,Total 9.3 mg/dL (8.5-10.1); Chloride 104 mmol/L (98-107); Creatinine, Serum 1.03 mg/dL (0.55-1.02); EST Glomerular Filtration Rate 56 mL/min (>60); Est Glom Filt Rate - Afr Amer 68 mL/min (>60); Free T3 2.6 pg/mL (2.18-3.98); Glucose 59 mg/dL (74-106); Potassium 3.6 mmol/L (3.5-5.1); Sodium Level 140 mmol/L (136-145); T4 Free Direct 0.77 ng/dL (0.76-1.46); Thyroid Stim Hormone (TSH) 0.82 uIU/mL (0.358-3.74)
== END ==
PROVIDERS: PCP Family Medicine; Referring Provider Internal Medicine Endocrinology, Diabetes & Metabolism; Visit Provider Internal Medicine Endocrinology, Diabetes & Metabolism
DX: E05.00 Thyrotoxicosis with diffuse goiter without thyrotoxic crisis or storm (principal); M81.0 Age-related osteoporosis without current pathological fracture; E55.9 Vitamin D deficiency, unspecified
CPT/HCPCS: 36415; 80048; 82306; 84439; 84443; 84481

== ENCOUNTER 2020-08-27 13:45 | Emergency (ER) | payer MEDICAID, SELFPAY ==
[2020-08-12 13:02] VITALS: BMI 23.6
[2020-08-27 13:46] VITALS: BP 145/84; PULSE 91; RESP 16; TEMP 36.6; O2SAT 100; BMI 23.3
--- NOTE | 2020-08-27 14:35 | RAD_ITS ---
STUDY: X-RAY - UNILATERAL RIBS ( LEFT ) WITH CHEST REASON FOR EXAM: Female, 70 years old. Trauma TECHNIQUE - RIBS: 4 view(s) of the ribs. TECHNIQUE - CHEST: Single PA view of the chest. COMPARISON: None. FINDINGS - RIBS: There is severe demineralization of the osseous structures which diminishes the diagnostic sensitivity of this examination, however there is no visualized rib fracture. FINDINGS - CHEST: The lungs are clear and expanded. There is no demonstrated pleural abnormality. Normal size heart. Normal mediastinum and phillip. Normal visualized pulmonary arteries. Normal visualized aortic arch and descending thoracic aorta. Normal visualized thoracic spine. Normal visualized ribs, clavicles, and shoulders. There is no demonstrated abnormality of the visualized soft tissue structures of the upper abdomen. RAD/Ribs Uni Min 3V w/PA Chest IMPRESSION: RIBS: No acute displaced rib fracture CHEST: No acute pulmonary process Electronically Signed: Arya Macias MD at 15:01 EDT , Service support ,
--- NOTE | 2020-08-27 15:12 | ED.DCSUM_ITS ---
- ER Visit Summary Date of Service: 08/27/20 Chief Complaint: Fall History of Present Illness: The patient is a 70 F who presents with left side pain after a fall from a 6 foot ladder. She landed on her left side and complains of left rib pain, worse with movement and breathing. She denies any other injuries. No head or neck pain. No back pain or right arm pain. No abdominal, pelvis, or leg pain. No loss of consciousness. No blood thinner use. Physical Examination: Vital signs unremarkable. Patient alert and oriented. Head and neck atraumatic. Heart regular rate and rhythm. Lungs clear. Left chest wall is diffusely tender to palpation without crepitus or abnormal mo vements. Abrasion over the left elbow, superficial, otherwise extremities are atraumatic. Good movement, strength, sensation. Test Results: X-rays of the chest and left ribs were unremarkable. Emergency Department Course and Treatment: Patient declined morphine and Zofran. Requesting something by mouth. I wanted to check x-rays first in case she needed a chest tube or other testing or procedure. Her x-rays were unremarkable. Will prescribe pain medication, incentive spirometer. Outpatient follow-up. Will treat as a clinical rib fracture. She has no evidence of complication like pneumothorax, hemothorax, spleen injury, or others. Return for any complications right away. Treatment Plan: As above Disposition: Discharge Impression: Left chest wall pain This note was generated with [employer] dictation software. It may contain incorrect words, spelling, and punctuation that were not noted in review of the chart prior to signing ED Disposition - Plan for ED Patient: Referrals: Franc Moses DO [Primary Care Provider] -
--- NOTE | 2020-08-27 15:14 | ED.DEP ---
ED Disposition - Plan for ED Patient: Instructions: Rib Fracture (Broken Rib) Prescriptions: Hydrocodone Bitart/Apap 5-325 [Minerva 5MG-325MG] 1 tablet PO Q6H PRN PRN 3 Days #10 tab PRN Reason: Pain Prescription Printed Referrals: Franc Moses DO [Primary Care Provider] -
[2020-08-27] MEDS: Ondansetron ODT 4 MG Tablet PO (15:30)
[2020-08-27] MEDS: HYDROcodone Bitartrate/Apap 5/325 Tablet PO (15:30)
[2020-08-27 15:41] VITALS: BP 138/82; PULSE 76; RESP 15; O2SAT 97
== END 2020-08-27 15:45 | disposition home or self-care (01) ==
LOC: ED 14:25
PROVIDERS: Emergency Provider Emergency Medicine; PCP Family Medicine
DX: R07.89 Other chest pain (principal); S50.312A Abrasion of left elbow, initial encounter; W11.XXXA Fall on and from ladder, initial encounter; Y93.9 Activity, unspecified; Y92.9 Unspecified place or not applicable; Y99.9 Unspecified external cause status; I10 Essential (primary) hypertension; E05.00 Thyrotoxicosis with diffuse goiter without thyrotoxic crisis or storm; Z79.899 Other long term (current) drug therapy
CPT/HCPCS: 71101; 99283

== ENCOUNTER → 2020-09-09 08:09 | Outpatient (CLI) | payer MEDICAID, SELFPAY ==
[2020-08-27 13:46] VITALS: BMI 23.3
[2020-09-09 10:40] LABS: Bilirubin, Direct 0.14 mg/dL (0.00-0.30); Cholesterol 209 mg/dL (200); High Density Lipoprotein 57 mg/dL; Triglycerides 205 mg/dL; Very Low Density Lipoprotein 41 mg/dL (5-40)
[2020-09-09 10:50] LABS: ALB/GLOB Ratio 0.9 RATIO (0.9-2.4); AST(SGOT) 18 U/L (15-37); Alanine Aminotransfer ALT/SGPT 32 U/L (13-56); Albumin, Serum 3.8 g/dL (3.2-5.0); Alkaline Phosphatase 168 U/L (45-117); Anion Gap 4 (5-15); BUN 18 mg/dL (7-18); BUN/Creat Ratio 17.5 RATIO (10-20); Calcium,Total 9.5 mg/dL (8.5-10.1); Chloride 102 mmol/L (98-107); Creatinine, Serum 1.03 mg/dL (0.55-1.02); EST Glomerular Filtration Rate 56 mL/min (>60); Est Glom Filt Rate - Afr Amer 68 mL/min (>60); Free T3 2.9 pg/mL (2.18-3.98); Globulin 4.4 g/dL (2.2-4.2); Glucose 97 mg/dL (74-106); Potassium 4.2 mmol/L (3.5-5.1); Protein, Total 8.2 g/dL (6.4-8.2); Sodium Level 136 mmol/L (136-145); T4 Free Direct 0.92 ng/dL (0.76-1.46); Thyroid Stim Hormone (TSH) 0.55 uIU/mL (0.358-3.74)
[2020-09-09 11:31] LABS: Vitamin D,25 Hydroxy 39.8 ng/mL
== END ==
PROVIDERS: Internal Medicine Endocrinology, Diabetes & Metabolism; PCP Family Medicine; Referring Provider Internal Medicine Cardiovascular Disease; Visit Provider Internal Medicine Cardiovascular Disease
DX: E05.00 Thyrotoxicosis with diffuse goiter without thyrotoxic crisis or storm (principal); E78.5 Hyperlipidemia, unspecified; M81.0 Age-related osteoporosis without current pathological fracture; E55.9 Vitamin D deficiency, unspecified
CPT/HCPCS: 36415; 80053; 80061; 82248; 82306; 84439; 84443; 84481

== ENCOUNTER → 2020-10-05 12:04 | Outpatient (CLI) | payer MEDICAID, SELFPAY ==
[2020-10-05 16:03] LABS: Free T3 3.2 pg/mL (2.18-3.98); T4 Free Direct 0.94 ng/dL (0.76-1.46); Thyroid Stim Hormone (TSH) 0.28 uIU/mL (0.358-3.74)
== END ==
PROVIDERS: Nurse Practitioner Family; PCP Family Medicine; Referring Provider Internal Medicine Endocrinology, Diabetes & Metabolism; Visit Provider Internal Medicine Endocrinology, Diabetes & Metabolism
DX: E05.00 Thyrotoxicosis with diffuse goiter without thyrotoxic crisis or storm (principal)
CPT/HCPCS: 36415; 84439; 84443; 84481

== ENCOUNTER → 2021-01-04 09:29 | Outpatient (CLI) | payer MEDICAID, SELFPAY ==
[2021-01-04 09:13] VITALS: BMI 24.8
[2021-01-04 12:23] LABS: ALB/GLOB Ratio 0.9 RATIO (0.9-2.4); AST(SGOT) 18 U/L (15-37); Alanine Aminotransfer ALT/SGPT 26 U/L (13-56); Albumin, Serum 4.1 g/dL (3.2-5.0); Alkaline Phosphatase 84 U/L (45-117); Anion Gap 7 (5-15); BUN 17 mg/dL (7-18); Calcium,Total 9.4 mg/dL (8.5-10.1); Chloride 95 mmol/L (98-107); EST Glomerular Filtration Rate 58 mL/min (>60); Est Glom Filt Rate - Afr Amer 70 mL/min (>60); Free T3 3.2 pg/mL (2.18-3.98); Globulin 4.4 g/dL (2.2-4.2); Glucose 95 mg/dL (74-106); Potassium 4.1 mmol/L (3.5-5.1); Protein, Total 8.5 g/dL (6.4-8.2); Sodium Level 131 mmol/L (136-145); T4 Free Direct 0.89 ng/dL (0.76-1.46)
== END ==
PROVIDERS: PCP Family Medicine; Referring Provider Internal Medicine Endocrinology, Diabetes & Metabolism; Visit Provider Internal Medicine Endocrinology, Diabetes & Metabolism
DX: E05.00 Thyrotoxicosis with diffuse goiter without thyrotoxic crisis or storm (principal); N18.9 Chronic kidney disease, unspecified
CPT/HCPCS: 36415; 80053; 84439; 84443; 84481

== ENCOUNTER → 2021-03-14 12:03 | Outpatient (CLI) | payer MEDICAID, SELFPAY ==
[2021-03-14 13:47] LABS: Absolute Lymphocyte Count 2.32 X10^3/uL (0.83-4.51); Absolute Neutrophil Count 6.8 X10^3/uL (2.0-7.7); Basophil# 0.06 X10^3/uL; Basophil% 0.6 % (0-1); Eosinophil# 0.04 X10^3/uL; Eosinophils% 0.4 % (0-5); Hematocrit 44.1 % (37-47); Hemoglobin 14.3 g/dL (12.0-15.0); Lymphocyte # 2.32 X10^3/ul (0.83-4.51); Lymphocyte % 22.9 % (19-41); Mean Corp Hgb Conc 32.4 g/dL (32-36); Mean Corpuscular Hgb 28.9 pg (27.0-32.0); Mean Corpuscular Volume 89.1 fL (81-99); Mean Platelet Vol. 9.2 fl (6.2-12.0); Monocyte# 0.87 X10^3/uL; Monocyte% 8.6 % (0-10); NRBC Flagged by Analyzer 0 % (0-5); Neutrophil # 6.81 X10^3/uL (2.7-7.7); Neutrophil % 67.2 % (47-70); Platelet Count 387 K/mm3 (150-450); RBC Distribution Width CV 12.7 % (11.6-14.6); RBC Distribution Width SD 41.3 fl (35.1-43.9); Red Blood Count 4.95 M/mm3 (4.2-5.4); White Blood Count 10.1 K/mm3 (4.4-11.0)
[2021-03-14 14:09] LABS: Partial Thromboplast Time 29.2 Seconds (24.1-36.2); Prothrombin Time (Protime)PT. 12.7 SECONDS (11.7-14.9)
[2021-03-14 14:11] LABS: AST(SGOT) 17 U/L (15-37); Alanine Aminotransfer ALT/SGPT 24 U/L (13-56); Albumin, Serum 3.8 g/dL (3.2-5.0); Alkaline Phosphatase 83 U/L (45-117); Bilirubin, Direct 0.09 mg/dL (0.00-0.30); Cholesterol 312 mg/dL (200); Globulin 4.5 g/dL (2.2-4.2); High Density Lipoprotein 53 mg/dL; Protein, Total 8.3 g/dL (6.4-8.2); Triglycerides 209 mg/dL; Very Low Density Lipoprotein 42 mg/dL (5-40)
== END ==
PROVIDERS: Internal Medicine Cardiovascular Disease; PCP Family Medicine; Referring Provider Family Medicine; Visit Provider Family Medicine
DX: I49.1 Atrial premature depolarization (principal); R58 Hemorrhage, not elsewhere classified; D64.9 Anemia, unspecified; I10 Essential (primary) hypertension; E78.5 Hyperlipidemia, unspecified
CPT/HCPCS: 36415; 80061; 80076; 85025; 85610; 85730

== ENCOUNTER → 2021-03-28 08:17 | Outpatient (CLI) | payer MEDICAID, SELFPAY ==
[2021-03-28 12:34] LABS: Anion Gap 7 (5-15); BUN 24 mg/dL (7-18); BUN/Creat Ratio 23.3 RATIO (10-20); Calcium,Total 9.5 mg/dL (8.5-10.1); Chloride 94 mmol/L (98-107); Creatinine, Serum 1.03 mg/dL (0.55-1.02); EST Glomerular Filtration Rate 56 mL/min (>60); Est Glom Filt Rate - Afr Amer 68 mL/min (>60); Glucose 105 mg/dL (74-106); Potassium 4.3 mmol/L (3.5-5.1); Sodium Level 129 mmol/L (136-145)
[2021-03-28 16:15] LABS: T4 Free Direct 0.94 ng/dL (0.76-1.46); Thyroid Stim Hormone (TSH) 0.15 uIU/mL (0.358-3.74)
== END ==
PROVIDERS: Internal Medicine Endocrinology, Diabetes & Metabolism; PCP Family Medicine; Visit Provider Nurse Practitioner Family
DX: I10 Essential (primary) hypertension (principal); E05.00 Thyrotoxicosis with diffuse goiter without thyrotoxic crisis or storm; E55.9 Vitamin D deficiency, unspecified
CPT/HCPCS: 36415; 80048; 84439; 84443

== ENCOUNTER → 2021-05-02 09:31 | Outpatient (CLI) | payer MEDICAID, SELFPAY ==
[2021-05-02 12:54] LABS: Osmolality, Serum 293 mOsm/KG (280-301)
[2021-05-02 13:36] LABS: Anion Gap 5 (5-15); BUN 16 mg/dL (7-18); BUN/Creat Ratio 17.1 RATIO (10-20); Calcium,Total 9.8 mg/dL (8.5-10.1); Chloride 102 mmol/L (98-107); Creatinine, Serum 0.94 mg/dL (0.55-1.02); EST Glomerular Filtration Rate 63 mL/min (>60); Est Glom Filt Rate - Afr Amer 76 mL/min (>60); Free T3 3.1 pg/mL (2.18-3.98); Glucose 98 mg/dL (74-106); Potassium 4.4 mmol/L (3.5-5.1); Sodium Level 135 mmol/L (136-145); T4 Free Direct 0.93 ng/dL (0.76-1.46); Thyroid Stim Hormone (TSH) 0.22 uIU/mL (0.358-3.74)
[2021-05-02 15:18] LABS: Color, Urine Yellow (Yellow); Glucose, Dipstick Normal (Normal); Ketone-Dipstick Negative (Negative); Leukocyte Esterase-Dipstick 500 /ul (Negative); Nitrite-Dipstick Positive (Negative); Occult Blood-Urine 25 /ul (Negative); Protein-Dipstick 15 mg/dl (Negative); Urine Bilirubin Dipstick Negative (Negative); Urine Clarity Cloudy (Clear); Urine Urobilinogen Normal (Normal)
[2021-05-02 15:24] LABS: Osmolality, Urine 233 mOsm/KG
[2021-05-02 15:28] LABS: Urine Sodium 51 mmol/L (Not Establ.)
== END ==
PROVIDERS: PCP Family Medicine; Visit Provider Internal Medicine Endocrinology, Diabetes & Metabolism
DX: E05.00 Thyrotoxicosis with diffuse goiter without thyrotoxic crisis or storm (principal); E87.1 Hypo-osmolality and hyponatremia; I10 Essential (primary) hypertension; R30.0 Dysuria
CPT/HCPCS: 36415; 80048; 81002; 83930; 83935; 84300; 84439; 84443; 84481; 87077; 87086; 87088; 87186

== ENCOUNTER → 2021-05-09 13:51 | Outpatient (CLI) | payer MEDICAID, SELFPAY ==
--- NOTE | 2021-05-09 13:55 | RAD_ITS ---
STUDY: X-RAY - LUMBAR SPINE REASON FOR EXAM: Female, 71 years old. ACUTE LBP TECHNIQUE: 5 view(s) of the lumbar spine were obtained including oblique views. COMPARISON: None FINDINGS: There is straightening of the normal lumbar lordosis. There is no substantial scoliosis. There is a normal alignment of the vertebrae. Disc space narrowing and spondylosis at the L1-L2 level. Mild degree of disc space narrowing at the L5-S1 level. There is atherosclerotic calcification of the abdominal aorta without a demonstrated aneurysm. RAD/L/S Spine Min 4 Views IMPRESSION: Degenerative changes of the spine, as detailed above. Electronically Signed: Khadar Ponce MD at 15:32 EST , Service support ,
== END ==
PROVIDERS: PCP Family Medicine; Referring Provider Family Medicine; Visit Provider Family Medicine
DX: M54.50 Low back pain, unspecified (principal)
CPT/HCPCS: 72110

== ENCOUNTER 2021-08-25 10:49 | Outpatient (CLI) | payer MEDICAID, SELFPAY ==
[2021-08-25 12:53] LABS: Free T3 3.4 pg/mL (2.18-3.98); T4 Free Direct 1.01 ng/dL (0.76-1.46); Thyroid Stim Hormone (TSH) 0.23 uIU/mL (0.358-3.74)
== END 2021-08-25 23:59 | disposition home or self-care (01) ==
LOC: BIMLAB 10:50
PROVIDERS: PCP Family Medicine; Referring Provider Internal Medicine Endocrinology, Diabetes & Metabolism; Visit Provider Internal Medicine Endocrinology, Diabetes & Metabolism
DX: E05.00 Thyrotoxicosis with diffuse goiter without thyrotoxic crisis or storm (principal); E87.1 Hypo-osmolality and hyponatremia
CPT/HCPCS: 36415; 84439; 84443; 84481

== ENCOUNTER → 2021-09-26 | Outpatient (CLI) | payer MEDICAID, SELFPAY ==
[2021-09-26 13:00] LABS: Free T3 3.1 pg/mL (2.18-3.98)
[2021-09-26 14:09] LABS: Thyroid Stim Hormone (TSH) 0.43 uIU/mL (0.358-3.74)
== END | disposition home or self-care (01) ==
PROVIDERS: Nurse Practitioner Family; PCP Family Medicine; Visit Provider Internal Medicine Endocrinology, Diabetes & Metabolism
DX: E05.00 Thyrotoxicosis with diffuse goiter without thyrotoxic crisis or storm (principal)
CPT/HCPCS: 36415; 84439; 84443; 84481

== ENCOUNTER → 2021-11-04 | Outpatient (CLI) | payer MEDICAID, SELFPAY ==
[2021-11-04 12:28] LABS: Osmolality, Serum 287 mOsm/KG (280-301); Osmolality, Urine 357 mOsm/KG
[2021-11-04 12:29] LABS: Urine Sodium 73 mmol/L (Not Establ.)
[2021-11-04 12:33] LABS: Vitamin D,25 Hydroxy 33.7 ng/mL
[2021-11-04 12:38] LABS: Anion Gap 6 (5-15); BUN 17 mg/dL (7-18); BUN/Creat Ratio 15.9 RATIO (10-20); Calcium,Total 10.1 mg/dL (8.5-10.1); Chloride 97 mmol/L (98-107); Creatinine, Serum 1.07 mg/dL (0.55-1.02); EST Glomerular Filtration Rate 54 mL/min (>60); Est Glom Filt Rate - Afr Amer 65 mL/min (>60); Glucose 107 mg/dL (74-106); Potassium 4.4 mmol/L (3.5-5.1); Sodium Level 132 mmol/L (136-145)
[2021-11-04 12:55] LABS: Free T3 3.2 pg/mL (2.18-3.98); T4 Free Direct 1.03 ng/dL (0.76-1.46); Thyroid Stim Hormone (TSH) 0.36 uIU/mL (0.358-3.74)
== END | disposition home or self-care (01) ==
LOC: BIMLAB 10:46
PROVIDERS: PCP Family Medicine; Referring Provider Internal Medicine Endocrinology, Diabetes & Metabolism; Visit Provider Internal Medicine Endocrinology, Diabetes & Metabolism
DX: E05.00 Thyrotoxicosis with diffuse goiter without thyrotoxic crisis or storm (principal); E87.1 Hypo-osmolality and hyponatremia; M81.0 Age-related osteoporosis without current pathological fracture; E55.9 Vitamin D deficiency, unspecified
CPT/HCPCS: 36415; 80048; 82306; 83930; 83935; 84300; 84439; 84443; 84481

== ENCOUNTER → 2021-12-08 | Outpatient (CLI) | payer MEDICAID, SELFPAY ==
[2021-12-08 15:22] LABS: Anion Gap 7 (5-15); BUN 14 mg/dL (7-18); BUN/Creat Ratio 12.5 RATIO (10-20); Calcium,Total 10.1 mg/dL (8.5-10.1); Chloride 97 mmol/L (98-107); Creatinine, Serum 1.12 mg/dL (0.55-1.02); EST Glomerular Filtration Rate 51 mL/min (>60); Est Glom Filt Rate - Afr Amer 62 mL/min (>60); Glucose 110 mg/dL (74-106); Potassium 4.3 mmol/L (3.5-5.1); Sodium Level 134 mmol/L (136-145)
== END | disposition home or self-care (01) ==
LOC: BIMLAB 13:01
PROVIDERS: PCP Family Medicine; Referring Provider Family Medicine; Visit Provider Family Medicine
DX: I12.9 Hypertensive chronic kidney disease with stage 1 through stage 4 chronic kidney disease, or unspecified chronic kidney disease (principal); N18.31 Chronic kidney disease, stage 3a
CPT/HCPCS: 36415; 80048

== ENCOUNTER → 2022-01-25 | Outpatient (CLI) | payer MEDICAID, SELFPAY ==
[2022-01-25 12:34] LABS: T4 Free Direct 0.97 ng/dL (0.76-1.46); Thyroid Stim Hormone (TSH) 0.13 uIU/mL (0.358-3.74)
== END | disposition home or self-care (01) ==
LOC: MTLAB 10:10
PROVIDERS: PCP Family Medicine; Referring Provider Nurse Practitioner Family; Visit Provider Nurse Practitioner Family
DX: E05.00 Thyrotoxicosis with diffuse goiter without thyrotoxic crisis or storm (principal)
CPT/HCPCS: 36415; 84439; 84443; 84481

== ENCOUNTER → 2022-02-09 | Outpatient (CLI) | payer MEDICAID, SELFPAY ==
[2022-02-09 15:22] LABS: Anion Gap 8 (5-15); BUN 16 mg/dL (7-18); BUN/Creat Ratio 15.8 RATIO (10-20); Calcium,Total 8.9 mg/dL (8.5-10.1); Chloride 100 mmol/L (98-107); Cholesterol 205 mg/dL (200); Creatinine, Serum 1.01 mg/dL (0.55-1.02); EST Glomerular Filtration Rate 57 mL/min (>60); Est Glom Filt Rate - Afr Amer 69 mL/min (>60); Glucose 101 mg/dL (74-106); High Density Lipoprotein 50 mg/dL; Phosphorus 2.4 mg/dL (2.5-4.9); Potassium 4.2 mmol/L (3.5-5.1); Sodium Level 133 mmol/L (136-145); Triglycerides 137 mg/dL; Uric Acid 5.5 mg/dL (2.6-6.0); Very Low Density Lipoprotein 27 mg/dL (5-40)
[2022-02-10 07:55] LABS: PTHIN 188.8 pg/mL (18.4-80.1)
== END | disposition home or self-care (01) ==
LOC: MTLAB 11:30
PROVIDERS: PCP Family Medicine; Referring Provider Family Medicine; Visit Provider Family Medicine
DX: E78.5 Hyperlipidemia, unspecified (principal); N18.31 Chronic kidney disease, stage 3a; I12.9 Hypertensive chronic kidney disease with stage 1 through stage 4 chronic kidney disease, or unspecified chronic kidney disease; M79.671 Pain in right foot; M79.672 Pain in left foot
CPT/HCPCS: 36415; 80048; 80061; 83970; 84100; 84550

== ENCOUNTER → 2022-03-02 | Outpatient (CLI) | payer MEDICAID, SELFPAY ==
[2022-03-02 16:09] LABS: T4 Free Direct 0.88 ng/dL (0.76-1.46); Thyroid Stim Hormone (TSH) 0.48 uIU/mL (0.358-3.74)
== END | disposition home or self-care (01) ==
LOC: BFHLAB 11:36
PROVIDERS: PCP Family Medicine; Referring Provider Family Medicine; Visit Provider Family Medicine
DX: E05.90 Thyrotoxicosis, unspecified without thyrotoxic crisis or storm (principal)
CPT/HCPCS: 36415; 84439; 84443

== ENCOUNTER → 2022-03-13 | Outpatient (CLI) | payer MEDICAID, SELFPAY ==
[2022-03-25 18:51] LABS: HLA B27 Positive (.)
== END | disposition home or self-care (01) ==
LOC: BFHLAB 11:01
PROVIDERS: PCP Family Medicine; Visit Provider Family Medicine
DX: M54.50 Low back pain, unspecified (principal); M46.1 Sacroiliitis, not elsewhere classified
CPT/HCPCS: 36415; 81374

== ENCOUNTER → 2022-04-10 | Outpatient (CLI) | payer MEDICAID, SELFPAY ==
[2022-04-10 18:51] LABS: T4 Free Direct 0.84 ng/dL (0.76-1.46); Thyroid Stim Hormone (TSH) 1.01 uIU/mL (0.358-3.74)
== END | disposition home or self-care (01) ==
PROVIDERS: PCP Family Medicine; Visit Provider Family Medicine
DX: E05.90 Thyrotoxicosis, unspecified without thyrotoxic crisis or storm (principal)
CPT/HCPCS: 84439; 84443

== ENCOUNTER → 2022-04-12 | Outpatient (CLI) | payer MEDICAID, SELFPAY ==
--- NOTE | 2022-04-12 08:21 | BD_ITS ---
STUDY: DUAL ENERGY X-RAY ABSORPTIOMETRY / DXA REASON FOR EXAM: Female, 72 years old. osteo TECHNIQUE: Bone Mineral Density (BMD) measurements of lumbar spine and bilateral hips were obtained. COMPARISON: Comparison is made with prior study dated 07/14/2010. FINDINGS: Lumbar Spine (L1-L4): g/cm2 (0.719) / T-score (-3.5) / Z-score (-1.1) Findings are suggestive of osteoporosis with a high fracture risk. Left Femur Total: g/cm2 (0.710) / T-score (-1.9) / Z-score (-0.3) Left Femoral Neck: g/cm2 (0.634) / T-score (-1.9) / Z-score (0.0) Right Femur Total: g/cm2 (0.680) / T-score (-2.1) / Z-score (-0.5) Right Femoral Neck: g/cm2 (0.571) / T-score (-2.5) / Z-score (-0.6) The T-Scores on the most recent prior examination were: Lumbar Spine (L1-L4): There has been worsening of bone density since the previous examination. Left Femur Total: which represents no significant change. . Right Femur Total: which represents a worsening of 3.1%. BD/Dexa Bone Density Study IMPRESSION: The patient is considered osteoporotic as outlined below according to World [employer] Organization (WHO) criteria with a high fracture risk. There has been worsening of bone density since the previous examination. Reference Information: The T-score is the number of standard deviations above or below the standard which is normal for young adults at their peak bone mineral density. The World Health Organization (WHO) interprets the T-scores as follows: Above -1 Normal bone density Between -1 and -2.5 Osteopenia Equal to / or below -2.5 Osteoporosis As a practical clinical guideline, osteopenia may be graded as follows: Mild -1 through -1.5 Moderate -1.6 through -2.0 Severe -2.1 through -2.4 The Z-score is the number of standard deviations above or below age-matched controls. A Z-score of less than -1.5 would be considered abnormal. References: 1. NIH Osteoporosis and Related Bone Diseases www osteo.org 2. International Society for Clinical Densitometry www iscd.org 3. National Osteoporosis Foundation www nof.org Electronically Signed: Khadar Ponce MD at 10:57 EST ,
== END | disposition home or self-care (01) ==
LOC: OPBD 07:59
PROVIDERS: PCP Family Medicine; Visit Provider Internal Medicine Endocrinology, Diabetes & Metabolism
DX: M81.0 Age-related osteoporosis without current pathological fracture (principal)
CPT/HCPCS: 77080

== ENCOUNTER → 2022-05-26 | Outpatient (CLI) | payer MEDICAID, SELFPAY ==
[2022-05-26 15:06] LABS: Absolute Lymphocyte Count 2.37 X10^3/uL (0.83-4.51); Absolute Neutrophil Count 6.3 X10^3/uL (2.0-7.7); Basophil# 0.05 X10^3/uL; Basophil% 0.5 % (0-1); Eosinophil# 0.14 X10^3/uL; Eosinophils% 1.4 % (0-5); Hematocrit 43.4 % (37-47); Hemoglobin 14.1 g/dL (12.0-15.0); Lymphocyte # 2.37 X10^3/ul (0.83-4.51); Lymphocyte % 24.4 % (19-41); Mean Corp Hgb Conc 32.5 g/dL (32-36); Mean Corpuscular Hgb 29.3 pg (27.0-32.0); Mean Platelet Vol. 9.9 fl (6.2-12.0); Monocyte# 0.83 X10^3/uL; Monocyte% 8.5 % (0-10); NRBC Flagged by Analyzer 0 % (0-5); Neutrophil % 64.8 % (47-70); Platelet Count 408 K/mm3 (150-450); RBC Distribution Width CV 12.2 % (11.6-14.6); RBC Distribution Width SD 39.9 fl (35.1-43.9); Red Blood Count 4.82 M/mm3 (4.2-5.4); White Blood Count 9.7 K/mm3 (4.4-11.0)
[2022-05-26 15:33] LABS: Anion Gap 9 (5-15); BUN 20 mg/dL (7-18); Calcium,Total 10.2 mg/dL (8.5-10.1); Chloride 103 mmol/L (98-107); Creatinine, Serum 1.05 mg/dL (0.55-1.02); EST Glomerular Filtration Rate 55 mL/min (>60); Est Glom Filt Rate - Afr Amer 66 mL/min (>60); Glucose 92 mg/dL (74-106); Potassium 4.4 mmol/L (3.5-5.1); Sodium Level 138 mmol/L (136-145)
[2022-05-26 15:34] LABS: Vitamin D,25 Hydroxy 41.2 ng/mL
[2022-05-29 08:25] LABS: PTHIN 35.2 pg/mL (18.4-80.1)
== END | disposition home or self-care (01) ==
LOC: BFHLAB 13:12
PROVIDERS: PCP Family Medicine; Visit Provider Family Medicine
DX: I12.9 Hypertensive chronic kidney disease with stage 1 through stage 4 chronic kidney disease, or unspecified chronic kidney disease (principal); N25.81 Secondary hyperparathyroidism of renal origin; N18.31 Chronic kidney disease, stage 3a; E55.9 Vitamin D deficiency, unspecified; R23.3 Spontaneous ecchymoses
CPT/HCPCS: 36415; 80048; 82306; 83970; 85025

== ENCOUNTER → 2022-06-13 | Outpatient (CLI) | payer MEDICAID, SELFPAY ==
[2022-06-13 18:42] LABS: Magnesium 2.1 mg/dL (1.6-2.6); Phosphorus 3.9 mg/dL (2.5-4.9)
== END | disposition home or self-care (01) ==
LOC: BFHLAB 15:32
PROVIDERS: PCP Family Medicine; Visit Provider Family Medicine
DX: I12.9 Hypertensive chronic kidney disease with stage 1 through stage 4 chronic kidney disease, or unspecified chronic kidney disease (principal); N18.31 Chronic kidney disease, stage 3a; M81.0 Age-related osteoporosis without current pathological fracture
CPT/HCPCS: 36415; 83735; 84100

== ENCOUNTER → 2022-08-21 | Outpatient (CLI) | payer MEDICAID, SELFPAY ==
[2022-08-21 16:25] LABS: Anion Gap 7 (5-15); BUN 17 mg/dL (7-18); BUN/Creat Ratio 17.1 RATIO (10-20); Calcium,Total 9.9 mg/dL (8.5-10.1); Chloride 104 mmol/L (98-107); Creatinine, Serum 0.99 mg/dL (0.55-1.02); EST Glomerular Filtration Rate 58 mL/min (>60); Est Glom Filt Rate - Afr Amer 71 mL/min (>60); Glucose 107 mg/dL (74-106); Potassium 4.1 mmol/L (3.5-5.1); Sodium Level 137 mmol/L (136-145); Thyroid Stim Hormone (TSH) 0.27 uIU/mL (0.358-3.74)
== END | disposition home or self-care (01) ==
PROVIDERS: PCP Family Medicine; Referring Provider Family Medicine; Visit Provider Family Medicine
DX: E05.90 Thyrotoxicosis, unspecified without thyrotoxic crisis or storm (principal); N18.31 Chronic kidney disease, stage 3a
CPT/HCPCS: 36415; 80048; 84439; 84443

== ENCOUNTER → 2022-09-08 | Outpatient (CLI) | payer MEDICAID, SELFPAY ==
[2022-09-08 18:42] LABS: T4 Free Direct 0.89 ng/dL (0.76-1.46); Thyroid Stim Hormone (TSH) 0.29 uIU/mL (0.358-3.74)
== END | disposition home or self-care (01) ==
LOC: BFHLAB 13:30
PROVIDERS: PCP Family Medicine; Visit Provider Family Medicine
DX: E05.90 Thyrotoxicosis, unspecified without thyrotoxic crisis or storm (principal)
CPT/HCPCS: 36415; 84439; 84443

== ENCOUNTER 2022-10-27 11:44 | Outpatient (CLI) | payer MEDICAID, SELFPAY ==
[2022-10-27] MEDS: DENOSUMAB 60 MG/ML SC (11:55)
[2022-10-27 12:00] VITALS: BP 147/66; PULSE 77; RESP 16; TEMP 35.5; O2SAT 98; BMI 26.1
== END 2022-10-27 11:45 | disposition home or self-care (01) ==
LOC: MEDOUTP 11:45
PROVIDERS: PCP Family Medicine; Referring Provider Family Medicine; Visit Provider Family Medicine
DX: M81.0 Age-related osteoporosis without current pathological fracture (principal)
CPT/HCPCS: 96372; J0897

== ENCOUNTER → 2022-12-04 | Outpatient (CLI) | payer MEDICAID, SELFPAY ==
--- NOTE | 2022-12-04 09:38 | RAD_ITS ---
STUDY: X-RAY - LEFT HUMERUS REASON FOR EXAM: Female, 72 years old. Fall. Pain. TECHNIQUE: 4 view(s) of the humerus. COMPARISON: None. FINDINGS: Osteopenia. Mild arthrosis of the glenohumeral and acromioclavicular joints. Irregularities of the left third and fourth ribs which may represent nondisplaced rib fractures. Dedicated left rib series recommended. Normal soft tissues. RAD/Humerus min 2 Views IMPRESSION: Osteopenia with irregularities of the left third and fourth ribs which may represent nondisplaced rib fractures. Dedicated left rib series recommended. Osteoarthrosis. Electronically Signed: Navdeep Schultz MD at 10:12 EDT ,
== END | disposition home or self-care (01) ==
LOC: MTRAD 09:36
PROVIDERS: PCP Family Medicine; Referring Provider Family Medicine; Visit Provider Family Medicine
DX: M25.512 Pain in left shoulder (principal)
CPT/HCPCS: 73060

== ENCOUNTER → 2022-12-11 | Outpatient (CLI) | payer MEDICAID, SELFPAY ==
[2022-12-11 18:08] LABS: T4 Free Direct 0.91 ng/dL (0.76-1.46); Thyroid Stim Hormone (TSH) 1.29 uIU/mL (0.358-3.74)
== END | disposition home or self-care (01) ==
LOC: BFHLAB 14:01
PROVIDERS: PCP Family Medicine; Referring Provider Family Medicine; Visit Provider Family Medicine
DX: E05.90 Thyrotoxicosis, unspecified without thyrotoxic crisis or storm (principal)
CPT/HCPCS: 36415; 84439; 84443

== ENCOUNTER → 2022-12-20 | Outpatient (CLI) | payer MEDICAID, SELFPAY ==
--- NOTE | 2022-12-20 09:00 | RAD_ITS ---
STUDY: X-RAY - LUMBAR SPINE REASON FOR EXAM: Female, 72 years old. Acute low back pain. Osteoporosis. TECHNIQUE: 5 view(s) of the lumbar spine were obtained. COMPARISON: April 2021. FINDINGS: Osteopenia. Normal lumbar lordosis. No substantial scoliosis. Normal alignment of the vertebrae. Diffuse lower thoracic and lumbosacral facet sclerosis. Stable minimal intervertebral disc space narrowing . Vascular calcification unchanged. RAD/L/S Spine Min 4 Views IMPRESSION: Stable lumbar spine with minimal lower thoracic and lumbosacral spondylosis. Electronically Signed: Navdeep Schultz MD at 9:20 EDT ,
== END | disposition home or self-care (01) ==
PROVIDERS: PCP Family Medicine; Referring Provider Family Medicine; Visit Provider Family Medicine
DX: M54.50 Low back pain, unspecified (principal); M81.0 Age-related osteoporosis without current pathological fracture
CPT/HCPCS: 72110

== ENCOUNTER → 2023-02-20 | Outpatient (CLI) | payer MEDICAID, SELFPAY ==
[2023-02-20 12:15] LABS: Absolute Lymphocyte Count 1.99 X10^3/uL (0.83-4.51); Basophil# 0.07 X10^3/uL; Eosinophil# 0.09 X10^3/uL; Eosinophils% 1.3 % (0-5); Hematocrit 43.1 % (37-47); Hemoglobin 13.7 g/dL (12.0-15.0); Lymphocyte # 1.99 X10^3/ul (0.83-4.51); Lymphocyte % 28.8 % (19-41); Mean Corp Hgb Conc 31.8 g/dL (32-36); Mean Corpuscular Hgb 29.5 pg (27.0-32.0); Mean Corpuscular Volume 92.9 fL (81-99); Mean Platelet Vol. 9.5 fl (6.2-12.0); Monocyte# 0.73 X10^3/uL; Monocyte% 10.6 % (0-10); NRBC Flagged by Analyzer 0 % (0-5); Neutrophil # 3.98 X10^3/uL (2.7-7.7); Neutrophil % 57.6 % (47-70); Platelet Count 398 K/mm3 (150-450); RBC Distribution Width CV 13.2 % (11.6-14.6); RBC Distribution Width SD 45.1 fl (35.1-43.9); Red Blood Count 4.64 M/mm3 (4.2-5.4); White Blood Count 6.9 K/mm3 (4.4-11.0)
[2023-02-20 12:47] LABS: ALB/GLOB Ratio 0.9 RATIO (0.9-2.4); AST(SGOT) 17 U/L (15-37); Alanine Aminotransfer ALT/SGPT 23 U/L (13-56); Albumin, Serum 3.8 g/dL (3.2-5.0); Alkaline Phosphatase 67 U/L (45-117); Anion Gap 6 (5-15); BUN 19 mg/dL (7-18); BUN/Creat Ratio 17.9 RATIO (10-20); Calcium,Total 9.4 mg/dL (8.5-10.1); Chloride 105 mmol/L (98-107); Cholesterol 221 mg/dL (200); Creatinine, Serum 1.06 mg/dL (0.55-1.02); EST Glomerular Filtration Rate 54 mL/min (>60); Est Glom Filt Rate - Afr Amer 65 mL/min (>60); Globulin 4.3 g/dL (2.2-4.2); Glucose 97 mg/dL (74-106); High Density Lipoprotein 45 mg/dL; PTHIN 81.2 pg/mL (18.4-80.1); Phosphorus 3.2 mg/dL (2.5-4.9); Potassium 4.3 mmol/L (3.5-5.1); Protein, Total 8.1 g/dL (6.4-8.2); Sodium Level 138 mmol/L (136-145); T4 Free Direct 1.01 ng/dL (0.76-1.46); Thyroid Stim Hormone (TSH) 0.27 uIU/mL (0.358-3.74); Triglycerides 236 mg/dL; Very Low Density Lipoprotein 47 mg/dL (5-40)
[2023-02-20 12:48] LABS: Vitamin D,25 Hydroxy 50.2 ng/mL
== END | disposition home or self-care (01) ==
PROVIDERS: PCP Family Medicine; Referring Provider Family Medicine; Visit Provider Family Medicine
DX: I12.9 Hypertensive chronic kidney disease with stage 1 through stage 4 chronic kidney disease, or unspecified chronic kidney disease (principal); N25.81 Secondary hyperparathyroidism of renal origin; N18.31 Chronic kidney disease, stage 3a; E87.1 Hypo-osmolality and hyponatremia; E78.5 Hyperlipidemia, unspecified; E05.90 Thyrotoxicosis, unspecified without thyrotoxic crisis or storm; M81.0 Age-related osteoporosis without current pathological fracture; E55.9 Vitamin D deficiency, unspecified
CPT/HCPCS: 36415; 80053; 80061; 82306; 83970; 84100; 84439; 84443; 85025

== ENCOUNTER → 2023-03-01 | Outpatient (CLI) | payer MEDICAID, SELFPAY ==
[2023-03-01 12:53] LABS: T4 Free Direct 0.94 ng/dL (0.76-1.46); Thyroid Stim Hormone (TSH) 0.44 uIU/mL (0.358-3.74)
== END | disposition home or self-care (01) ==
PROVIDERS: PCP Family Medicine; Referring Provider Family Medicine; Visit Provider Family Medicine
DX: E05.90 Thyrotoxicosis, unspecified without thyrotoxic crisis or storm (principal); N18.31 Chronic kidney disease, stage 3a
CPT/HCPCS: 36415; 84439; 84443

== ENCOUNTER 2023-04-27 11:22 | Outpatient (CLI) | payer MEDICAID, SELFPAY ==
[2023-04-27 11:45] VITALS: BP 149/72; PULSE 81; RESP 16; TEMP 36.2; O2SAT 99; BMI 25.5
[2023-04-27] MEDS: DENOSUMAB 60 MG/ML SC (11:47)
== END 2023-04-27 11:23 | disposition home or self-care (01) ==
LOC: MEDOUTP 11:23
PROVIDERS: PCP Family Medicine; Referring Provider Family Medicine; Visit Provider Family Medicine
DX: M81.0 Age-related osteoporosis without current pathological fracture (principal)
CPT/HCPCS: 96372; J0897

== ENCOUNTER → 2023-05-17 | Outpatient (CLI) | payer MEDICAID, SELFPAY ==
--- OUTSIDE RECORDS SUMMARY | 2023-05-17 15:00 | XMS RPT_ITS | CCD ---
Author Name Unknown Address [address] [place] [address] Organization [facility] Care Team Providers Care Mammalogist Name Role Phone Pierec, Arabella Unavailable Unavailable Pierce, Arabella Unavailable Unavailable DeFinis, Harumi Y Unavailable Unavailable Beatriz Parada CNP S Unavailable Rin, Renny Unavailable Unavailable [place], Renny Unavailable Unavailable Rin, Renny Unavailable Unavailable RIN, RENNY Unavailable Unavailable RIN, RENNY Unavailable Unavailable RIN, RENNY Unavailable Unavailable Allergies Allergy Classification Reported Allergen(s) Allergy Type Date of Onset Reaction(s) Facility (8 sources) amitriptyline drug allergy 4 jaundice [facility] Work Phone: [phone] (12 sources) ciprofloxacin; Translations: [CIPRO] drug allergy 4 thrombocytopenia [facility] Work Phone: [phone] (8 sources) codeine drug allergy 4 vomitting [facility] Work Phone: [phone] (8 sources) nabumetone drug allergy 4 hematuria [facility] Work Phone: [phone] (8 sources) niacin drug allergy 4 flushing [facility] Work Phone: [phone] (12 sources) penicillin; Translations: [PENICILLIN] drug allergy 4 thrombocytopenia [facility] Work Phone: [phone] (8 sources) pramipexole drug allergy 4 unsure [facility] Work Phone: [phone] (8 sources) propoxyphene drug allergy 4 severe GERD [facility] Work Phone: (8 sources) quiNINE drug allergy 4 thrombocytopenia [facility] Work Phone: [phone] (8 sources) rOPINIRole drug allergy 4 thrombocytopenia [facility] Work Phone: [phone] Medications Completed/Discontinued Medications Medication Drug Class(es) Dates Sig (Normalized) Sig (Original) acetaminophen 500 mg / diphenhydrAMINE hydrochloride 25 mg oral tablet (4 sources) Histamine-1 Receptor Antagonist Start: 08-20-2013 TYLENOL PM EXTRA STRENGTH 500-25 MG TABS As needed DIPHENHYDRAMINE-A PAP (SLEEP) [id number] Patsy Hopkins RN Problems Active Problems Problem Classification Problem Date Documented Da te Episodic/Chronic Disorders of lipid metabolism (4 sources) Hyperlipidemia; Translations: [Hyperlipidemia, unspecified] Onset: 08-20-2013 08-20-2013 Chronic Essential hypertension (4 sources) Hypertensive disorder; Translations: [Essential (primary) hypertension] Onset: 08-20-2013 08-20-2013 Chronic Thyroid disorders (4 sources) Hyperthyroidism; Translations: [Thyrotoxicosis, unspecified without thyrotoxic crisis or storm] Onset: 11-18-2013 11-19-2013 Chronic Unclassified (1 source) Unknown / UNK(Unknown) Onset: 11-22-2016 Past or Other Problems Problem Classification Problem Date Documented Da te Episodic/Chronic Cardiac dysrhythmias (4 sources) Palpitations; Translations: [Palpitations] Onset: 08-20-2013 08-20-2013 Episodic Conditions associated with dizziness or vertigo (4 sources) Dizziness; Translations: [Dizziness and giddiness] Onset: 08-20-2013 08-20-2013 Episodic Other lower respiratory disease (8 sources) Dyspnea; Translations: [Chronic cough] Onset: 08-20-2013 08-20-2013 Episodic Other nutritional; endocrine; and metabolic disorders (4 sources) Body mass index (BMI) 26.0-26.9, adult; Translations: [Body mass index (BMI) 26.0-26.9, adult] Onset: 07-31-2014 07-31-2014 Episodic Other upper respiratory disease (4 sources) Posterior rhinorrhea; Translations: [Postnasal drip] Onset: 05-03-2016 05-03-2016 Episodic Syncope (4 sources) Syncope and collapse; Translations: [Syncope and collapse] Onset: 08-21-2013 08-21-2013 Episodic Thyroid disorders (2 sources) Disorder of thyroid, unspecified; Translations: [Disorder of thyroid, unspecified] Onset: 07-11-2017 Episodic Unclassified (4 sources) FH: Hypertension; Translations: [Family history of ischemic heart disease and other diseases of the circulatory system] 11-18-2013 Episodic Unclassified (1 source) R25.2 Onset: 11-22-2016 Results Test Name Value Interpretation Reference Range Facil ity Vital Signs Date Time Vital Sign Value Performing Clinician Facladan corley 11-08-2016 11:24-0400 BMI (Body Mass Index) 26.87 kg/m2 Arabella Witt [facility] Work Phone: 11-08-2016 11:24-0400 BP Diastolic 80 mm[Hg] Arabella Pierce [facility] Work Phone: 11-08-2016 11:24-0400 BP Systolic 140 mm[Hg] Arabella Pierce [facility] Work Phone: 11-08-2016 11:24-0400 Height 166.37 cm Arabella Pierce [facility] Work Phone: 11-08-2016 11:24-0400 Pulse (Heart Rate) 68 /min Arabella Pierce [facility] Work Phone: 11-08-2016 11:24-0400 Respiratory Rate 16 /min Arabella Pierce [facility] Work Phone: 11-08-2016 11:24-0400 Weight 74.39 kg Arabella [facility] Work Phone: 05-03-2016 14:40-0500 BMI (Body Mass Index) 26.87 kg/m2 May Witt [facility] Work Phone: 05-03-2016 14:40-0500 BP Diastolic 70 mm[Hg] May [facility] Work Phone: 05-03-2016 14:40-0500 BP Systolic 142 mm[Hg] May [facility] Work Phone: 05-03-2016 14:40-0500 BSA (Body Surface Area) 1.83 m2 Harjayla DeFinis [facility] Work Phone: 05-03-2016 14:40-0500 Pulse (Heart Rate) 72 /min Harumi DeFinis [facility] Work Phone: 05-03-2016 14:40-0500 Respiratory Rate 16 /min Harumi DeFinis [facility] Work Phone: 05-03-2016 14:40-0500 Weight 74.39 kg Harumi DeFinis [facility] Work Phone: 05-03-2016 13:30-0500 Body Temperature 97.16 [degF] Harumi DeFinis [facility] Work Phone: 05-03-2016 13:30-0500 Body Temperature 97.2 [degF] Harumi DeFinis [facility] Work Phone: 05-03-2016 13:30-0500 Height 166.37 cm Harumi DeFinis [facility] Work Phone: 05-03-2016 13:30-0500 Pulse Oximetry 99 % Harumi DeFinis [facility] Work Phone: 05-03-2016 13:30-0500 Weight 75.45 kg Trungumi DeFinis [facility] Work Phone: Encounters Encounter Date Encounter Type Care Provider Facility Start: 07-11-2017 [facility] Start: 11-22-2016 End: 11-23-2016 [facility] Procedures Date Procedure Procedure Detail Performing Clinician Start: 11-08-2016 End: 11-08-2016 Follow Up Appt 1 year Niels Bellamy Start: 11-08-2016 End: 11-08-2016 PFM Niels Cordoba MD Start: 11-08-2016 End: 11-08-2016 Follow Up Appt 1 year Niels Bellamy Start: 11-08-2016 End: 11-08-2016 PFM Niels Cordoba MD Start: 05-03-2016 End: 05-03-2016 Follow Up Appt 6 months Niels Cordoba MD Start: 05-03-2016 End: 05-03-2016 PFM Niels Cordoba MD Start: 05-03-2016 End: 05-03-2016 Follow Up Appt 6 months Niels Cordoba MD Start: 05-03-2016 End: 05-03-2016 PFM Niels Cordoba MD Start: 08-27-2015 End: 11-08-2016 Cardiovascular function eval w/tilt table w/mntr Niels Cordoba MD Start: 08-27-2015 End: 08-27-2015 Follow Up Appt 6 months Niels Cordoba MD Start: 08-27-2015 End: 08-27-2015 PFM Niels Cordoba MD Start: 08-27-2015 End: 08-27-2015 Follow Up Appt 6 months Niels Cordoba MD Start: 08-27-2015 End: 08-27-2015 PFM Niels Cordoba MD Start: 08-27-2015 End: 11-08-2016 Tilt table evaluation Niels Bellamy Start: 08-11-2015 End: 12-02-2015 Brncspsm 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 w/admn agt Barrington Fox MA Start: 08-11-2015 End: 12-02-2015 Cholesterol Barrington Fox MA Start: 07-21-2015 End: 12-02-2015 Follow Up Appt 3 months Myron Dempsey Work Phone: Start: 07-21-2015 End: 12-02-2015 Pulmonary Function Test - complete Myron Dempsey Work Phone: Start: 07-21-2015 End: 12-02-2015 Follow Up Appt 3 months Myron Dempsey Work Phone: Start: 07-21-2015 End: 12-02-2015 Pulmonary Function Test - complete Myron Dempsey Work Phone: Start: 02-22-2015 End: 02-22-2015 Follow Up Appt 6 months Niels Cordoba MD Start: 02-22-2015 End: 02-22-2015 PFM Niels Cordoba MD Start: 02-22-2015 End: 02-22-2015 Follow Up Appt 6 months Niels Cordoba MD Start: 02-22-2015 End: 02-22-2015 PFM Niels Cordoba MD Start: 07-31-2014 End: 07-31-2014 Chest x-ray Niels Cordoba MD Start: 07-31-2014 End: 08-01-2014 Documentation of current medications Niels Cordoba MD Start: 07-31-2014 End: 11-08-2016 Echocardiography Niels Cordoba MD Start: 07-31-2014 End: 07-31-2014 Follow Up Appt 6 months Niels Cordoba MD Start: 07-31-2014 End: 07-31-2014 MMM Niels Cordoba MD Start: 07-31-2014 End: 07-31-2014 Chest x-ray Niels Cordoba MD Start: 07-31-2014 End: 08-01-2014 Documentation of current medications Niels Cordoba MD Start: 07-31-2014 End: 11-08-2016 Echocardiography Niels Cordoba MD Start: 07-31-2014 End: 07-31-2014 Follow Up Appt 6 months Niels Cordoba MD Start: 07-31-2014 End: 07-31-2014 MMM Niels Cordoba MD Start: 11-18-2013 End: 11-08-2016 Follow Up Appt 3 months Karyn murillo PA-C Work Phone: Start: 11-18-2013 End: 11-18-2013 Follow Up Appt Other Karyn richmond PA-C Work Phone: Start: 11-18-2013 End: 11-08-2016 PFM Karyn Guaman PA-C Work Phone: Start: 11-18-2013 End: 11-08-2016 Follow Up Appt 3 months Karyn murillo PA-C Work Phone: Start: 11-18-2013 End: 11-18-2013 Follow Up Appt Other Karyn richmond PA-C Work Phone: Start: 11-18-2013 End: 11-08-2016 PFM Karyn Guaman PA-C Work Phone: Start: 08-22-2013 End: 11-08-2016 Nuclear stress test -exercise Niels arenas MD Start: 08-22-2013 End: 11-08-2016 Nuclear stress test -exercise Niels arenas MD Start: 08-21-2013 End: 08-21-2013 *BMP Niels Cordoba MD Start: 08-21-2013 End: 08-21-2013 *CBC with Differential Niels Cordoba MD Start: 08-21-2013 End: 11-08-2016 Cardiovascular function eval w/tilt table w/mntr Niels Cordoba MD Start: 08-21-2013 End: 08-21-2013 Ecg routine ecg w/least 12 lds w/i&r Niels Cordoba MD Start: 08-21-2013 End: 11-08-2016 Echocardiography Niels Cordoba MD Start: 08-21-2013 End: 08-21-2013 Follow Up Appt 6 weeks Niels Cordoba MD Start: 08-21-2013 End: 08-21-2013 MMM Niels Cordoba MD Start: 08-21-2013 End: 08-21-2013 Thyrotropin [Units/volume] in Serum or Plasma Niles Cordoba MD Start: 08-21-2013 End: 08-21-2013 Thyroxine (T4) [Mass/volume] in Serum or Plasma Niels Cordoba MD Start: 08-21-2013 End: 08-31-2015 Xtrnl mobile cv telemetry w/i&report 30 days Niels Cordoba MD Start: 08-21-2013 End: 08-21-2013 *BMP Niels Cordoba MD Start: 08-21-2013 End: 08-21-2013 *CBC with Differential Niels Cordoba MD Start: 08-21-2013 End: 11-08-2016 Echocardiography Niels Cordoba MD Start: 08-21-2013 End: 08-21-2013 Electrocardiogram, complete Niels suresh MD Start: 08-21-2013 End: 08-21-2013 Follow Up Appt 6 weeks Niels Cordoba MD Start: 08-21-2013 End: 08-21-2013 MMM Niels Cordoba MD Start: 08-21-2013 End: 08-31-2015 Remote 30 day ecg rev/report Niels campa MD Start: 08-21-2013 End: 08-21-2013 Thyroxine (T4) Niels Cordoba MD Start: 08-21-2013 End: 11-08-2016 Tilt table evaluation Niels Bellamy Plan of Treatment Date Care Activity Detail Author Start: 11-05-2017 End: 11-05-2017 Appointment Appointment [facility] Work Phone: Start: 11-08-2016 End: 11-08-2016 Follow Up Appt 1 year Follow Up Appt 1 year [facility] Work Phone: Start: 11-08-2016 End: 11-08-2016 PFM PFM [facility] Work Phone: Start: 11-08-2016 End: 11-08-2016 Appointment Appointment [facility] Work Phone: Start: 11-08-2016 End: 11-08-2016 Follow Up Appt 1 year Follow Up Appt 1 year [facility] Work Phone: Start: 11-08-2016 End: 11-08-2016 PFM PFM [facility] Work Phone: Start: 05-03-2016 End: 05-03-2016 Bacteria sputum culture *Sputum Culture [facility] Work Phone: Start: 05-03-2016 End: 05-03-2016 Follow Up Appt 6 months Follow Up Appt 6 months [facility] Work Phone: Start: 05-03-2016 End: 05-03-2016 PFM PFM [facility] Work Phone: Start: 05-03-2016 End: 05-03-2016 Respiratory pathogens DNA and RNA 12b panel - Unspecified specimen by ROSY with probe detection *Respiratory Panel [facility] Work Phone: Start: 05-03-2016 End: 05-03-2016 Bacteria sputum culture *Sputum Culture [facility] Work Phone: Start: 05-03-2016 End: 05-03-2016 Follow Up Appt 6 months Follow Up Appt 6 months [facility] Work Phone: Start: 05-03-2016 End: 05-03-2016 PFM PFM [facility] Work Phone: Start: 05-03-2016 End: 05-03-2016 Respiratory pathogens DNA and RNA 12b panel - Unspecified specimen by ROSY with probe detection *Respiratory Panel [facility] Work Phone: Start: 10-05-2015 End: 10-05-2015 Follow Up Appt 3 months Follow Up Appt 3 months [facility] Work Phone: Start: 10-05-2015 End: 10-05-2015 Methanol [Presence] in Blood *METHA Volatiles [facility] Work Phone: Start: 10-05-2015 End: 10-05-2015 Follow Up Appt 3 months Follow Up Appt 3 months [facility] Work Phone: Start: 10-05-2015 End: 10-05-2015 Methanol [Presence] in Blood *METHA Volatiles [facility] Work Phone: Start: 08-27-2015 End: 08-27-2015 Cardiovascular function eval w/tilt table w/mntr Tilt Table Test [facility] Work Phone: Start: 08-27-2015 End: 08-27-2015 Follow Up Appt 6 months Follow Up Appt 6 months [facility] Work Phone: Start: 08-27-2015 End: 08-27-2015 PFM PFM [facility] Work Phone: Start: 08-27-2015 End: 08-27-2015 Follow Up Appt 6 months Follow Up Appt 6 months [facility] Work Phone: Start: 08-27-2015 End: 08-27-2015 PFM PFM [facility] Work Phone: Start: 08-27-2015 End: 08-27-2015 Tilt table evaluation Tilt Table Test [facility] Work Phone: Start: 08-11-2015 End: 12-02-2015 Cholesterol Methylcholine inhalation challenge [facility] Work Phone: Start: 08-11-2015 End: 12-02-2015 Cholesterol Methylcholine inhalation challenge [facility] Work Phone: Start: 07-21-2015 End: 12-02-2015 Follow Up Appt 3 months Follow Up Appt 3 months [facility] Work Phone: Start: 07-21-2015 End: 12-02-2015 Pulmonary Function Test - complete Pulmonary Function Test - complete [facility] Work Phone: Start: 07-21-2015 End: 12-02-2015 Follow Up Appt 3 months Follow Up Appt 3 months [facility] Work Phone: Start: 07-21-2015 End: 12-02-2015 Pulmonary Function Test - complete Pulmonary Function Test - complete [facility] Work Phone: Start: 02-22-2015 End: 02-22-2015 Follow Up Appt 6 months Follow Up Appt 6 months [facility] Work Phone: Start: 02-22-2015 End: 02-22-2015 PFM PFM [facility] Work Phone: Start: 02-22-2015 End: 02-22-2015 Follow Up Appt 6 months Follow Up Appt 6 months [facility] Work Phone: Start: 02-22-2015 End: 02-22-2015 PFM PFM [facility] Work Phone: Start: 07-31-2014 End: 07-31-2014 Chest x-ray X-Ray, Chest, PA & Lateral [facility] Work Phone: Start: 07-31-2014 End: 07-31-2014 Echocardiography Echocardiogram (complete) [facility] Work Phone: Start: 07-31-2014 End: 07-31-2014 Follow Up Appt 6 months Follow Up Appt 6 months [facility] Work Phone: Start: 07-31-2014 End: 07-31-2014 MMM MMM [facility] Work Phone: Start: 07-31-2014 End: 07-31-2014 Chest x-ray X-Ray, Chest, PA & Lateral [facility] Work Phone: Start: 07-31-2014 End: 07-31-2014 Echocardiography Echocardiogram (complete) [facility] Work Phone: Start: 07-31-2014 End: 07-31-2014 Follow Up Appt 6 months Follow Up Appt 6 months [facility] Work Phone: Start: 07-31-2014 End: 07-31-2014 MMM MMM [facility] Work Phone: Start: 11-18-2013 End: 11-08-2016 Follow Up Appt 3 months Follow Up Appt 3 months [facility] Work Phone: Start: 11-18-2013 End: 11-18-2013 Follow Up Appt Other Follow Up Appt Other [facility] Work Phone: Start: 11-18-2013 End: 11-08-2016 PFM PFM [facility] Work Phone: Start: 11-18-2013 End: 11-08-2016 Follow Up Appt 3 months Follow Up Appt 3 months [facility] Work Phone: Start: 11-18-2013 End: 11-18-2013 Follow Up Appt Other Follow Up Appt Other [facility] Work Phone: Start: 11-18-2013 End: 11-08-2016 PFM PFM [facility] Work Phone: Start: 08-22-2013 End: 08-22-2013 Nuclear stress test -exercise Nuclear stress test -exercise [facility] Work Phone: Start: 08-22-2013 End: 08-28-2013 Nuclear stress test -exercise Nuclear stress test -exercise [employer] [facility] Phone: Start: 08-21-2013 End: 08-21-2013 *BMP *BMP [facility] Phone: Start: 08-21-2013 End: 08-21-2013 *CBC with Differential *CBC with Differential [facility] Phone: Start: 08-21-2013 End: 08-21-2013 Cardiovascular function eval w/tilt table w/mntr Tilt Table Test [facility] Phone: Start: 08-21-2013 End: 08-21-2013 Ecg routine ecg w/least 12 lds w/i&r EKG (In office) [facility] Phone: Start: 08-21-2013 End: 08-21-2013 Echocardiography Echocardiogram (complete) [facility] Phone: Start: 08-21-2013 End: 08-21-2013 Follow Up Appt 6 weeks Follow Up Appt 6 weeks [facility] Phone: Start: 08-21-2013 End: 08-21-2013 MMM MMM [facility] Phone: Start: 08-21-2013 End: 08-21-2013 Thyroid stimulating hormone (TSH) *TSH [facility] Phone: Start: 08-21-2013 End: 08-21-2013 Thyroxine (T4) *T4 (Total) [facility] Phone: Start: 08-21-2013 End: 08-21-2013 Xtrnl mobile cv telemetry w/i&report 30 days 30 Day Holter Monitor [facility] Phone: Start: 08-21-2013 End: 08-21-2013 *BMP *BMP [facility] Work Phone: Start: 08-21-2013 End: 08-21-2013 *CBC with Differential *CBC with Differential [facility] Work Phone: Start: 08-21-2013 End: 08-27-2013 Echocardiography Echocardiogram (complete) [facility] Work Phone: Start: 08-21-2013 End: 08-21-2013 Electrocardiogram, complete EKG (In office) [facility] Work Phone: Start: 08-21-2013 End: 08-21-2013 Follow Up Appt 6 weeks Follow Up Appt 6 weeks [facility] Work Phone: Start: 08-21-2013 End: 08-21-2013 MMM MMM [facility] Work Phone: Start: 08-21-2013 End: 08-21-2013 Remote 30 day ecg rev/report 30 Day Holter Monitor [facility] Work Phone: Start: 08-21-2013 End: 08-21-2013 Thyroid stimulating hormone (TSH) *TSH [facility] Work Phone: Start: 08-21-2013 End: 08-21-2013 Thyroxine (T4) *T4 (Total) [facility] Work Phone: Start: 08-21-2013 End: 08-21-2013 Tilt table evaluation Tilt Table Test [facility] Work Phone: Payers Date Payer Category Payer Private Health Insurance [id number] Private Health Insurance Summary Purpose Family History No Family History Records FoundNo Family History Records FoundNo Family History Records Found Advance Directives No Advanced Directives Records FoundNo Advanced Directives Records FoundNo Advanced Directives Records Found Additional Source Comments INFORMATION SOURCE (unrecogn ized section and content) DATE CREATED AUTHOR AUTHOR'S ORGANIZ ATION 11/14/2017 [employer] DATE CREATED AUTHOR AUTHOR'S ORGANIZ ATION 06/16/2020 [employer] ([place]) FOR RECORDS PERTAINING TO PATIENTS WHO ARE OR HAVE BEEN ENROLLED IN A CHEMICAL DEPENDENCY/SUBSTANCEABUSE PROGRAM, SOME INFORMATION MAY BE OMITTED. This clinical summary was aggregated from multiple sources. Caution should be exercised in using it in the provision of clinical care. This summary normalizes information from multiple sources, and as a consequence, information in this document may materially change the coding, format and clinical context of patient data. In addition, data may be omitted in some cases. CLINICAL DECISIONS SHOULD BE BASED ON THE PRIMARY CLINICAL RECORDS. [employer] [facility]. provides no warranty or guarantee of the accuracy or completeness of information in this document.
[2023-05-17 18:01] LABS: T4 Free Direct 0.79 ng/dL (0.76-1.46); Thyroid Stim Hormone (TSH) 1.91 uIU/mL (0.358-3.74)
== END | disposition home or self-care (01) ==
LOC: BFHLAB 14:40
PROVIDERS: PCP Family Medicine; Visit Provider Family Medicine
DX: E05.90 Thyrotoxicosis, unspecified without thyrotoxic crisis or storm (principal)
CPT/HCPCS: 36415; 84439; 84443

== ENCOUNTER → 2023-05-25 | Outpatient (CLI) | payer MEDICAID, SELFPAY ==
--- NOTE | 2023-05-25 14:22 | RAD_ITS ---
HISTORY: PAIN. TECHNIQUE: XR Spine Lumbar Min 4 Views. COMPARISON: 12/20/2022. FINDINGS: VERTEBRAE: Vertebral body heights preserved. Bridging osteophyte at L1-2 again seen Mild degenerative changes of the posterior elements. ALIGNMENT: No significant anterior or posterior subluxation. INTERVERTEBRAL DISCS: Mild degenerative endplate changes of L1-2 and L5-S1. RAD/L/S Spine Min 4 Views IMPRESSION: No acute fracture or dislocation identified in the lumbar spine. Mild degenerative change, similar to prior. Electronically Signed: Qiana Kendrick MD at 15:00 EST ,
--- OUTSIDE RECORDS SUMMARY | 2023-05-25 14:37 | XMS RPT_ITS | CCD ---
Author Name Unknown Address [address] [place] [address] Organization [facility] Care Team Providers Care Contact Center Professional Name Role Phone Pierce, Arabella Unavailable Unavailable Pierce, Arabella Unavailable Unavailable DeFinis, Harumi Y Unavailable Unavailable Beatriz Parada CNP S Unavailable Rin, Renny Unavailable Unavailable Rin, Renny Unavailable Unavailable [place], Renny Unavailable Unavailable RIN, RENNY Unavailable Unavailable RIN, RENNY Unavailable Unavailable RIN, RENNY Unavailable Unavailable Allergies Allergy Classification Reported Allergen(s) Allergy Type Date of Onset Reaction(s) Facility (8 sources) amitriptyline drug allergy 4 jaundice [facility] Work Phone: [phone] (12 sources) ciprofloxacin; Translations: [CIPRO] drug allergy 4 thrombocytopenia [facility] Work Phone: [phone] (8 sources) codeine drug allergy 4 vomitting [facility] Work Phone: [phone] (8 sources) nabumetone drug allergy 4 hematuria [facility] Work Phone: [phone] (8 sources) niacin drug allergy 4 flushing [facility] Work Phone: [phone] (12 sources) penicillin; Translations: [PENICILLIN] drug allergy 4 thrombocytopenia [facility] Work Phone: [phone] (8 sources) pramipexole drug allergy 4 unsure [facility] Work Phone: [phone] (8 sources) propoxyphene drug allergy 4 severe GERD [facility] Work Phone: (8 sources) quiNINE drug allergy 4 thrombocytopenia [facility] Work Phone: [phone] (8 sources) rOPINIRole drug allergy 4 thrombocytopenia [facility] Work Phone: [phone] Medications Completed/Discontinued Medications Medication Drug Class(es) Dates Sig (Normalized) Sig (Original) acetaminophen 500 mg / diphenhydrAMINE hydrochloride 25 mg oral tablet (4 sources) Histamine-1 Receptor Antagonist Start: 08-20-2013 TYLENOL PM EXTRA STRENGTH 500-25 MG TABS As needed DIPHENHYDRAMINE-A PAP (SLEEP) [id number] Patsy Hopkins RN Problems Active Problems Problem [...] (Body Mass Index) 26.87 kg/m2 Arabella Witt [facility] Work Phone: 11-08-2016 11:24-0400 BP Diastolic 80 mm[Hg] Arabella Pierce [facility] Work Phone: 11-08-2016 11:24-0400 BP Systolic 140 mm[Hg] Arabella Pierce [facility] Work Phone: 11-08-2016 11:24-0400 Height 166.37 cm Arabella Pierce [facility] Work Phone: 11-08-2016 11:24-0400 Pulse (Heart Rate) 68 /min Arabella Pierce [facility] Work Phone: 11-08-2016 11:24-0400 Respiratory Rate 16 /min Arabella Pierce [facility] Work Phone: 11-08-2016 11:24-0400 Weight 74.39 kg Arabella [facility] Work Phone: 05-03-2016 14:40-0500 BMI (Body Mass Index) 26.87 kg/m2 May Witt [facility] Work Phone: 05-03-2016 14:40-0500 BP Diastolic 70 mm[Hg] May [facility] Work Phone: 05-03-2016 14:40-0500 BP Systolic 142 mm[Hg] May [facility] Work Phone: 05-03-2016 14:40-0500 BSA (Body Surface Area) 1.83 m2 Harjayla DeFinis [facility] Work Phone: 05-03-2016 14:40-0500 Pulse (Heart Rate) 72 /min Harumi DeFinis [facility] Work Phone: 05-03-2016 14:40-0500 Respiratory Rate 16 /min Harumi DeFinis [facility] Work Phone: 05-03-2016 14:40-0500 Weight 74.39 kg Harumi DeFinis [facility] Work Phone: 05-03-2016 13:30-0500 Body Temperature 97.16 [degF] Harumi DeFinis [facility] Work Phone: 05-03-2016 13:30-0500 Body Temperature 97.2 [degF] Harumi DeFinis [facility] Work Phone: 05-03-2016 13:30-0500 Height 166.37 cm Harumi DeFinis [facility] Work Phone: 05-03-2016 13:30-0500 Pulse Oximetry 99 % Harumi DeFinis [facility] Work Phone: 05-03-2016 13:30-0500 Weight 75.45 kg Trungumi DeFinis [facility] Work Phone: Encounters Encounter Date Encounter Type Care Provider Facility Start: 07-11-2017 [facility] Start: 11-22-2016 End: 11-23-2016 [facility] Facility:[facility] Procedures Date Procedure Procedure Detail Performing Clinician Start: 11-08-2016 End: 11-08-2016 Follow Up Appt 1 year Niels Blelamy Start: 11-08-2016 End: 11-08-2016 PFM Niels Cordoba [...] Start: 08-11-2015 End: 12-02-2015 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 agt Barrington Fox MA Start: [...] End: 07-31-2014 Follow Up Appt 6 months Niles Cordoba MD Start: 07-31-2014 End: 07-31-2014 MMM [...] 08-21-2013 Thyrotropin [Units/volume] in Serum or Plasma Niels Cordoba MD Start: 08-21-2013 End: 08-21-2013 Thyroxine [...] End: 08-31-2015 Remote 30 day ecg rev/report Neils campa MD Start: 08-21-2013 End: 08-21-2013 Thyroxine (T4) Niels Cordoba MD Start: 08-21-2013 End: 11-08-2016 Tilt table evaluation iNels Bellamy Plan of Treatment Date Care Activity Detail Author Start: 11-05-2017 End: 11-05-2017 Appointment Appointment [facility] Work Phone: Start: 11-08-2016 End: 11-08-2016 Follow Up Appt 1 year Follow Up Appt 1 year [facility] Work Phone: Start: 11-08-2016 End: 11-08-2016 PFM PFM [facility] Work Phone: Start: 11-08-2016 End: 11-08-2016 Appointment Appointment [facility] Work Phone: Start: 11-08-2016 End: 11-08-2016 Follow Up Appt 1 year Follow Up Appt 1 year [facility] Work Phone: Start: 11-08-2016 End: 11-08-2016 PFM PFM [facility] Work Phone: Start: 05-03-2016 End: 05-03-2016 Bacteria sputum culture *Sputum Culture [facility] Work Phone: Start: 05-03-2016 End: 05-03-2016 Follow Up Appt 6 months Follow Up Appt 6 months [facility] Work Phone: Start: 05-03-2016 End: 05-03-2016 PFM PFM [facility] Work Phone: Start: 05-03-2016 End: 05-03-2016 Respiratory pathogens DNA and RNA 12b panel - Unspecified specimen by ROSY with probe detection *Respiratory Panel [facility] Work Phone: Start: 05-03-2016 End: 05-03-2016 Bacteria sputum culture *Sputum Culture [facility] Work Phone: Start: 05-03-2016 End: 05-03-2016 Follow Up Appt 6 months Follow Up Appt 6 months [facility] Work Phone: Start: 05-03-2016 End: 05-03-2016 PFM PFM [facility] Work Phone: Start: 05-03-2016 End: 05-03-2016 Respiratory pathogens DNA and RNA 12b panel - Unspecified specimen by ROSY with probe detection *Respiratory Panel [facility] Work Phone: Start: 10-05-2015 End: 10-05-2015 Follow Up Appt 3 months Follow Up Appt 3 months [facility] Work Phone: Start: 10-05-2015 End: 10-05-2015 Methanol [Presence] in Blood *METHA Volatiles [facility] Work Phone: Start: 10-05-2015 End: 10-05-2015 Follow Up Appt 3 months Follow Up Appt 3 months [facility] Work Phone: Start: 10-05-2015 End: 10-05-2015 Methanol [Presence] in Blood *METHA Volatiles [facility] Work Phone: Start: 08-27-2015 End: 08-27-2015 Cardiovascular function eval w/tilt table w/mntr Tilt Table Test [facility] Work Phone: Start: 08-27-2015 End: 08-27-2015 Follow Up Appt 6 months Follow Up Appt 6 months [facility] Work Phone: Start: 08-27-2015 End: 08-27-2015 PFM PFM [facility] Work Phone: Start: 08-27-2015 End: 08-27-2015 Follow Up Appt 6 months Follow Up Appt 6 months [facility] Work Phone: Start: 08-27-2015 End: 08-27-2015 PFM PFM [facility] Work Phone: Start: 08-27-2015 End: 08-27-2015 Tilt table evaluation Tilt Table Test [facility] Work Phone: Start: 08-11-2015 End: 12-02-2015 Cholesterol Methylcholine inhalation challenge [facility] Work Phone: Start: 08-11-2015 End: 12-02-2015 Cholesterol Methylcholine inhalation challenge [facility] Work Phone: Start: 07-21-2015 End: 12-02-2015 Follow Up Appt 3 months Follow Up Appt 3 months [facility] Work Phone: Start: 07-21-2015 End: 12-02-2015 Pulmonary Function Test - complete Pulmonary Function Test - complete [facility] Work Phone: Start: 07-21-2015 End: 12-02-2015 Follow Up Appt 3 months Follow Up Appt 3 months [facility] Work Phone: Start: 07-21-2015 End: 12-02-2015 Pulmonary Function Test - complete Pulmonary Function Test - complete [facility] Work Phone: Start: 02-22-2015 End: 02-22-2015 Follow Up Appt 6 months Follow Up Appt 6 months [facility] Work Phone: Start: 02-22-2015 End: 02-22-2015 PFM PFM [facility] Work Phone: Start: 02-22-2015 End: 02-22-2015 Follow Up Appt 6 months Follow Up Appt 6 months [facility] Work Phone: Start: 02-22-2015 End: 02-22-2015 PFM PFM [facility] Work Phone: Start: 07-31-2014 End: 07-31-2014 Chest x-ray X-Ray, Chest, PA & Lateral [facility] Work Phone: Start: 07-31-2014 End: 07-31-2014 Echocardiography Echocardiogram (complete) [facility] Work Phone: Start: 07-31-2014 End: 07-31-2014 Follow Up Appt 6 months Follow Up Appt 6 months [facility] Work Phone: Start: 07-31-2014 End: 07-31-2014 MMM MMM [facility] Work Phone: Start: 07-31-2014 End: 07-31-2014 Chest x-ray X-Ray, Chest, PA & Lateral [facility] Work Phone: Start: 07-31-2014 End: 07-31-2014 Echocardiography Echocardiogram (complete) [facility] Work Phone: Start: 07-31-2014 End: 07-31-2014 Follow Up Appt 6 months Follow Up Appt 6 months [facility] Work Phone: Start: 07-31-2014 End: 07-31-2014 MMM MMM [facility] Work Phone: Start: 11-18-2013 End: [...] 3 months Follow Up Appt 3 months [facility] Work Phone: Start: 11-18-2013 End: 11-18-2013 Follow Up Appt Other Follow Up Appt Other [facility] Work Phone: Start: 11-18-2013 End: 11-08-2016 PFM PFM [facility] Work Phone: Start: 08-22-2013 End: 08-22-2013 Nuclear stress test -exercise Nuclear stress test -exercise [facility] Work Phone: Start: 08-22-2013 End: 08-28-2013 Nuclear stress test -exercise Nuclear stress test -exercise [employer] Phone: Start: 08-21-2013 End: 08-21-2013 *BMP *BMP [facility] Phone: Start: 08-21-2013 End: 08-21-2013 *CBC with Differential *CBC with Differential [facility] Phone: Start: 08-21-2013 End: 08-21-2013 Cardiovascular function eval w/tilt table w/mntr Tilt Table Test [facility] Phone: Start: 08-21-2013 End: 08-21-2013 Ecg routine ecg w/least 12 lds w/i&r EKG (In office) [facility] Phone: Start: 08-21-2013 End: 08-21-2013 Echocardiography Echocardiogram (complete) [facility] Phone: Start: 08-21-2013 End: 08-21-2013 Follow Up Appt 6 weeks Follow Up Appt 6 weeks [facility] Phone: Start: 08-21-2013 End: 08-21-2013 MMM MMM [facility] Phone: Start: 08-21-2013 End: 08-21-2013 Thyroid stimulating hormone (TSH) *TSH [facility] Phone: Start: 08-21-2013 End: 08-21-2013 Thyroxine (T4) *T4 (Total) [facility] Phone: Start: 08-21-2013 End: 08-21-2013 Xtrnl mobile cv telemetry w/i&report 30 days 30 Day Holter Monitor [facility] Phone: Start: 08-21-2013 End: 08-21-2013 *BMP *BMP [employer] Work Phone: Start: 08-21-2013 End: 08-21-2013 *CBC with Differential *CBC with Differential [facility] Work Phone: Start: 08-21-2013 End: 08-27-2013 Echocardiography Echocardiogram (complete) [facility] Work Phone: Start: 08-21-2013 End: 08-21-2013 Electrocardiogram, complete EKG (In office) [facility] Work Phone: Start: 08-21-2013 End: 08-21-2013 Follow Up Appt 6 weeks Follow Up Appt 6 weeks [facility] Work Phone: Start: 08-21-2013 End: 08-21-2013 MMM MMM [facility] Work Phone: Start: 08-21-2013 End: 08-21-2013 Remote 30 day ecg rev/report 30 Day Holter Monitor [facility] [employer] Work Phone: Start: 08-21-2013 End: 08-21-2013 Thyroid stimulating hormone (TSH) *TSH [facility] Work Phone: Start: 08-21-2013 End: 08-21-2013 Thyroxine (T4) *T4 (Total) [facility] Work Phone: Start: 08-21-2013 End: 08-21-2013 Tilt table evaluation Tilt Table Test [facility] Work Phone: Payers Date Payer Category Payer Private Health Insurance [id number] Private Health Insurance Summary Purpose Family History No Family History Records FoundNo Family History Records FoundNo Family History Records Found Advance Directives No Advanced Directives Records FoundNo Advanced Directives Records FoundNo Advanced Directives Records Found Additional Source Comments INFORMATION SOURCE (unrecogn ized section and content) DATE CREATED AUTHOR AUTHOR'S ORGANIZ ATION 11/14/2017 [employer] DATE CREATED AUTHOR AUTHOR'S ORGANIZ ATION 06/16/2020 [employer] ([place] FOR RECORDS PERTAINING TO PATIENTS [...] BE BASED ON THE PRIMARY CLINICAL RECORDS. [facility]. provides no warranty or guarantee of the accuracy or completeness of information in this document.
== END | disposition home or self-care (01) ==
LOC: MTRAD 14:21
PROVIDERS: PCP Family Medicine; Referring Provider Family Medicine; Visit Provider Family Medicine
DX: M54.50 Low back pain, unspecified (principal)
CPT/HCPCS: 72110

== ENCOUNTER → 2023-06-14 | Outpatient (CLI) | payer MEDICAID, SELFPAY ==
--- OUTSIDE RECORDS SUMMARY | 2023-06-14 16:28 | XMS RPT_ITS | CCD ---
Author Name Unknown Address [address] [place] [address] Organization [facility] Care Team Providers Care Molecular Physicist Name Role Phone Pierce, Arabella Unavailable Unavailable Pierce, Arabella Unavailable Unavailable DeFinis, Harumi Y Unavailable Unavailable Beatriz Parada CNP S Unavailable Rin, Renny Unavailable Unavailable [place], Renny Unavailable Unavailable [place], Renny Unavailable Unavailable RIN, RENNY Unavailable Unavailable RIN, RENNY Unavailable Unavailable RIN, RENNY Unavailable Unavailable Allergies Allergy Classification Reported Allergen(s) Allergy Type Date of Onset Reaction(s) Facility (8 sources) amitriptyline drug allergy 4 jaundice [facility] Work Phone: [phone] (12 sources) ciprofloxacin; Translations: [CIPRO] drug allergy 4 thrombocytopenia [facility] Work Phone: [phone] (8 sources) codeine drug allergy 4 vomitting [facility] Work Phone: [phone] (8 sources) nabumetone drug allergy 4 hematuria [facility] Work Phone: [phone] (8 sources) niacin drug allergy 4 flushing [facility] Work Phone: [phone] (12 sources) penicillin; Translations: [PENICILLIN] drug allergy 4 thrombocytopenia [facility] Work Phone: [phone] (8 sources) pramipexole drug allergy 4 unsure [facility] Work Phone: [phone] (8 sources) propoxyphene drug allergy 4 severe GERD [facility] Work Phone: (8 sources) quiNINE drug allergy 4 thrombocytopenia [facility] Work Phone: [phone] (8 sources) rOPINIRole drug allergy 4 thrombocytopenia [facility] Work Phone: [phone] Medications Completed/Discontinued Medications Medication Drug Class(es) Dates Sig (Normalized) Sig (Original) acetaminophen 500 mg / diphenhydrAMINE hydrochloride 25 mg oral tablet (4 sources) Histamine-1 Receptor Antagonist Start: 08-20-2013 TYLENOL PM EXTRA STRENGTH 500-25 MG TABS As needed DIPHENHYDRAMINE-A PAP (SLEEP) [id number] Patsy Hopkins RN Problems Active Problems Problem [...] (Body Mass Index) 26.87 kg/m2 Arabella [facility] Work Phone: 11-08-2016 11:24-0400 BP Diastolic 80 mm[Hg] Arabella Pierce [facility] Work Phone: 11-08-2016 11:24-0400 BP Systolic 140 mm[Hg] Arabella Pierce [facility] Work Phone: 11-08-2016 11:24-0400 Height 166.37 cm Arabella Pierce [facility] Work Phone: 11-08-2016 11:24-0400 Pulse (Heart Rate) 68 /min Arabella Pierce [facility] Work Phone: 11-08-2016 11:24-0400 Respiratory Rate 16 /min Arabella Pierce [facility] Work Phone: 11-08-2016 11:24-0400 Weight 74.39 kg Arabella [facility] Work Phone: 05-03-2016 14:40-0500 BMI (Body Mass Index) 26.87 kg/m2 May Witt [facility] Work Phone: 05-03-2016 14:40-0500 BP Diastolic 70 mm[Hg] May [facility] Work Phone: 05-03-2016 14:40-0500 BP Systolic 142 mm[Hg] May [facility] Work Phone: 05-03-2016 14:40-0500 BSA (Body Surface Area) 1.83 m2 Harjayla DeFinis [facility] Work Phone: 05-03-2016 14:40-0500 Pulse (Heart Rate) 72 /min Harumi DeFinis [facility] Work Phone: 05-03-2016 14:40-0500 Respiratory Rate 16 /min Harumi DeFinis [facility] Work Phone: 05-03-2016 14:40-0500 Weight 74.39 kg Harumi DeFinis [facility] Work Phone: 05-03-2016 13:30-0500 Body Temperature 97.16 [degF] Harumi DeFinis [facility] Work Phone: 05-03-2016 13:30-0500 Body Temperature 97.2 [degF] Harumi DeFinis [facility] Work Phone: 05-03-2016 13:30-0500 Height 166.37 cm Harumi DeFinis [facility] Work Phone: 05-03-2016 13:30-0500 Pulse Oximetry 99 % Harumi DeFinis [facility] Work Phone: 05-03-2016 13:30-0500 Weight 75.45 kg Trungumi DeFinis [facility] Work Phone: Encounters Encounter Date Encounter Type Care Provider Facility Start: 07-11-2017 [facility] Start: 11-22-2016 End: 11-23-2016 [facility] Facility:[facility] Procedures Date Procedure Procedure Detail Performing [...] Start: 08-11-2015 End: 12-02-2015 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 w/admn agt Barrington Fox [place] Start: [...] 02-22-2015 Follow Up Appt 6 months Niels Corodba MD Start: 02-22-2015 End: 02-22-2015 PFM Niels [...] Appt 1 year [facility] Work Phone: Start: 11-08-2016 End: 11-08-2016 PFM PFM [facility] Work Phone: Start: 11-08-2016 End: 11-08-2016 Appointment Appointment [facility] Work Phone: Start: 11-08-2016 End: 11-08-2016 Follow Up Appt 1 year Follow Up Appt 1 year [facility] Work Phone: Start: 11-08-2016 End: 11-08-2016 PFM PFM [facility] Work Phone: Start: 05-03-2016 End: 05-03-2016 Bacteria sputum culture *Sputum Culture [facility] Work Phone: Start: 05-03-2016 End: 05-03-2016 Follow Up Appt 6 months Follow Up Appt 6 months [facility] Work Phone: Start: 05-03-2016 End: 05-03-2016 PFM PFM [facility] Work Phone: Start: 05-03-2016 End: 05-03-2016 Respiratory pathogens DNA and RNA 12b panel - Unspecified specimen by ROSY with probe detection *Respiratory Panel [facility] Work Phone: Start: 05-03-2016 End: 05-03-2016 Bacteria sputum culture *Sputum Culture [facility] Work Phone: Start: 05-03-2016 End: 05-03-2016 Follow Up Appt 6 months Follow Up Appt 6 months [facility] Work Phone: Start: 05-03-2016 End: 05-03-2016 PFM PFM [facility] Work Phone: Start: 05-03-2016 End: 05-03-2016 Respiratory pathogens DNA and RNA 12b panel - Unspecified specimen by ROSY with probe detection *Respiratory Panel [facility] Work Phone: Start: 10-05-2015 End: 10-05-2015 Follow Up Appt 3 months Follow Up Appt 3 months [facility] Work Phone: Start: 10-05-2015 End: 10-05-2015 Methanol [Presence] in Blood *METHA Volatiles [facility] Work Phone: Start: 10-05-2015 End: 10-05-2015 Follow Up Appt 3 months Follow Up Appt 3 months [facility] Work Phone: Start: 10-05-2015 End: 10-05-2015 Methanol [Presence] in Blood *METHA Volatiles [facility] Work Phone: Start: 08-27-2015 End: 08-27-2015 Cardiovascular function eval w/tilt table w/mntr Tilt Table Test [facility] Work Phone: Start: 08-27-2015 End: 08-27-2015 Follow Up Appt 6 months Follow Up Appt 6 months [facility] Work Phone: Start: 08-27-2015 End: 08-27-2015 PFM PFM [facility] Work Phone: Start: 08-27-2015 End: 08-27-2015 Follow Up Appt 6 months Follow Up Appt 6 months [facility] Work Phone: Start: 08-27-2015 End: 08-27-2015 PFM PFM [facility] Work Phone: Start: 08-27-2015 End: 08-27-2015 Tilt table evaluation Tilt Table Test [facility] Work Phone: Start: 08-11-2015 End: 12-02-2015 Cholesterol Methylcholine inhalation challenge [facility] Work Phone: Start: 08-11-2015 End: 12-02-2015 Cholesterol Methylcholine inhalation challenge [facility] Work Phone: Start: 07-21-2015 End: 12-02-2015 Follow Up Appt 3 months Follow Up Appt 3 months [facility] Work Phone: Start: 07-21-2015 End: 12-02-2015 Pulmonary Function Test - complete Pulmonary Function Test - complete [facility] Work Phone: Start: 07-21-2015 End: 12-02-2015 Follow Up Appt 3 months Follow Up Appt 3 months [facility] Work Phone: Start: 07-21-2015 End: 12-02-2015 Pulmonary Function Test - complete Pulmonary Function Test - complete [facility] Work Phone: Start: 02-22-2015 End: 02-22-2015 Follow Up Appt 6 months Follow Up Appt 6 months [facility] Work Phone: Start: 02-22-2015 End: 02-22-2015 PFM PFM [facility] Work Phone: Start: 02-22-2015 End: 02-22-2015 Follow Up Appt 6 months Follow Up Appt 6 months [facility] Work Phone: Start: 02-22-2015 End: 02-22-2015 PFM PFM [facility] Work Phone: Start: 07-31-2014 End: 07-31-2014 Chest x-ray X-Ray, Chest, PA & Lateral [facility] Work Phone: Start: 07-31-2014 End: 07-31-2014 Echocardiography Echocardiogram (complete) [facility] Work Phone: Start: 07-31-2014 End: 07-31-2014 Follow Up Appt 6 months Follow Up Appt 6 months [facility] Work Phone: Start: 07-31-2014 End: 07-31-2014 MMM MMM [facility] Work Phone: Start: 07-31-2014 End: 07-31-2014 Chest x-ray X-Ray, Chest, PA & Lateral [facility] Work Phone: Start: 07-31-2014 End: 07-31-2014 Echocardiography Echocardiogram (complete) [facility] Work Phone: Start: 07-31-2014 End: 07-31-2014 Follow Up Appt 6 months Follow Up Appt 6 months [facility] Work Phone: Start: 07-31-2014 End: 07-31-2014 MMM MMM [facility] Work Phone: Start: 11-18-2013 End: 11-08-2016 Follow Up Appt 3 months Follow Up Appt 3 months [facility] Work Phone: Start: 11-18-2013 End: 11-18-2013 Follow Up Appt Other Follow Up Appt Other [facility] Work Phone: Start: 11-18-2013 End: 11-08-2016 PFM PFM [facility] Work Phone: Start: 11-18-2013 End: 11-08-2016 Follow Up Appt 3 months Follow Up Appt 3 months [facility] Work Phone: Start: 11-18-2013 End: 11-18-2013 Follow Up Appt Other Follow Up Appt Other [facility] Work Phone: Start: 11-18-2013 End: 11-08-2016 PFM PFM [facility] Work Phone: Start: 08-22-2013 End: 08-22-2013 Nuclear stress test -exercise Nuclear stress test -exercise [facility] Work Phone: Start: 08-22-2013 End: 08-28-2013 Nuclear stress test -exercise Nuclear stress test -exercise [facility] Phone: Start: 08-21-2013 End: 08-21-2013 *BMP *BMP [facility] Phone: Start: 08-21-2013 End: 08-21-2013 *CBC with Differential *CBC with Differential [facility] Phone: Start: 08-21-2013 End: 08-21-2013 Cardiovascular function eval w/tilt table w/mntr Tilt Table Test [facility] Phone: Start: 08-21-2013 End: 08-21-2013 Ecg routine ecg w/least 12 lds w/i&r EKG (In office) [facility] Phone: Start: 08-21-2013 End: 08-21-2013 Echocardiography Echocardiogram (complete) [facility] Phone: Start: 08-21-2013 End: 08-21-2013 Follow Up Appt 6 weeks Follow Up Appt 6 weeks [facility] Phone: Start: 08-21-2013 End: 08-21-2013 MMM MMM [facility] Phone: Start: 08-21-2013 End: 08-21-2013 Thyroid stimulating hormone (TSH) *TSH [facility] Phone: Start: 08-21-2013 End: 08-21-2013 Thyroxine (T4) *T4 (Total) [facility] Phone: Start: 08-21-2013 End: 08-21-2013 Xtrnl mobile cv telemetry w/i&report 30 days 30 Day Holter Monitor [facility] Phone: Start: 08-21-2013 End: 08-21-2013 *BMP *BMP [employer] Work Phone: Start: 08-21-2013 End: 08-21-2013 *CBC with Differential *CBC with Differential [facility] Work Phone: Start: 08-21-2013 End: 08-27-2013 Echocardiography Echocardiogram (complete) [facility] Work Phone: Start: 08-21-2013 End: 08-21-2013 Electrocardiogram, complete EKG (In office) [facility] Work Phone: Start: 08-21-2013 End: 08-21-2013 Follow Up Appt 6 weeks Follow Up Appt 6 weeks [facility] Work Phone: Start: 08-21-2013 End: 08-21-2013 MMM MMM [facility] Work Phone: Start: 08-21-2013 End: 08-21-2013 Remote 30 day ecg rev/report 30 Day Holter Monitor [facility] Work Phone: Start: 08-21-2013 End: 08-21-2013 Thyroid stimulating hormone (TSH) *TSH [facility] Work Phone: Start: 08-21-2013 End: 08-21-2013 Thyroxine (T4) *T4 (Total) [facility] Work Phone: Start: 08-21-2013 End: 08-21-2013 Tilt table evaluation Tilt Table Test [facility] Work Phone: Payers Date Payer Category Payer Private Health Insurance [id number] Private Health Insurance Summary Purpose Family History No Family History Records FoundNo Family History Records FoundNo Family History Records Found Advance Directives No Advanced Directives Records FoundNo Advanced Directives Records FoundNo Advanced Directives Records Found Additional Source Comments INFORMATION SOURCE (unrecogn ized section and content) DATE CREATED AUTHOR AUTHOR'S ORGANIZ ATION 11/14/2017 [employer] DATE CREATED AUTHOR AUTHOR'S ORGANIZ ATION 06/16/2020 [employer] ([place]) FOR RECORDS PERTAINING TO PATIENTS [...] BE BASED ON THE PRIMARY CLINICAL RECORDS. [employer] [facility]. provides no warranty or guarantee of the accuracy or completeness of information in this document.
== END | disposition home or self-care (01) ==
LOC: BFHLAB 16:07 → LABSPEC 16:08
PROVIDERS: PCP Family Medicine; Visit Provider Family Medicine
DX: M54.50 Low back pain, unspecified (principal)
CPT/HCPCS: 87077; 87086; 87088; 87186

== ENCOUNTER → 2023-07-16 | Outpatient (CLI) | payer MEDICAID, SELFPAY ==
[2023-07-16 16:05] LABS: Anion Gap 4 (5-15); BUN 16 mg/dL (7-18); BUN/Creat Ratio 13.8 RATIO (10-20); Calcium,Total 9.6 mg/dL (8.5-10.1); Chloride 100 mmol/L (98-107); Creatinine, Serum 1.16 mg/dL (0.55-1.02); EST Glomerular Filtration Rate 49 mL/min (>60); Est Glom Filt Rate - Afr Amer 59 mL/min (>60); Glucose 98 mg/dL (74-106); Potassium 4.3 mmol/L (3.5-5.1); Sodium Level 135 mmol/L (136-145); T4 Free Direct 0.88 ng/dL (0.76-1.46); Thyroid Stim Hormone (TSH) 0.61 uIU/mL (0.358-3.74)
--- OUTSIDE RECORDS SUMMARY | 2023-07-16 20:25 | XMS RPT_ITS | CCD ---
Author Name Unknown Address [address] [place] [address] Organization [facility] Care Team Providers Care Junior Database Administrator Name Role Phone Arabella Pierce Unavailable Unavailable Arabella Pierce Unavailable Unavailable May Rodriguez Unavailable Unavailable Beatriz Parada CNP Unavailable Rin, Renny Unavailable Unavailable Rin, Renny Unavailable Unavailable Rin, Renny Unavailable Unavailable RIN, RENNY Unavailable Unavailable RIN, RENNY Unavailable Unavailable RIN, RENNY Unavailable Unavailable [facility] DR YAMILET NIEVES A Primary Care Physician Sidra oCok PT Unavailable Unavailable Allergies Allergy Classification Reported Allergen(s) Allergy Type Date of Onset Reaction(s) Facility (9 sources) amitriptyline; Translations: [Amitriptyline] drug allergy 4 jaundice [facility] Work Phone: [phone] (12 sources) ciprofloxacin; Translations: [CIPRO] drug allergy 4 thrombocytopenia [facility] Work Phone: [phone] (9 sources) codeine; Translations: [Codeine] drug allergy 4 vomitting, constipation [facility] Work Phone: [phone] (9 sources) nabumetone; Translations: [nabumetone] drug allergy 4 hematuria, Diarrhea [facility] Work Phone: [phone] (8 sources) niacin drug allergy 4 flushing [facility] Work Phone: [phone] (12 sources) penicillin; Translations: [PENICILLIN] drug allergy 4 thrombocytopenia [facility] Work Phone: [phone] (9 sources) pramipexole; Translations: [Pramipexole] drug allergy 4 Thrombocytopenic disorder (disorder) [facility] Work Phone: [phone] (9 sources) propoxyphene; Translations: [Propoxyphene] drug allergy 4 severe GERD, hives [facility] Work Phone: [phone] (9 sources) quiNINE; Translations: [Quinine] drug allergy 4 thrombocytopenia [facility] Work Phone: [phone] (9 sources) rOPINIRole; Translations: [ropinirole] drug allergy 4 Thrombocytopenic disorder (disorder) [facility] Work Phone: [phone] (1 source) Gemfibrozil; Translations: [gemfibrozil] Drug Allergy Muscle pain (finding) [facility] (1 source) Methotrexate; Translations: [methotrexate] Drug Allergy Vomiting (disorder) [facility] Medications Current Medications Medication Drug Class(es) Dates Sig (Normalized) Sig (Original) Acetaminophen (1 source) Start: 06-05-2020 acetaminophen 0 Refill(s) Start Date: 06/05/20 Status: Ordered amLODIPine 5 mg oral tablet (5 sources) Dihydropyridine Calcium Channel [place] Start: 06-10-2020 amLODIPine 5 mg oral tablet Dose : 5 mg = 1 tab(s), Oral, qDay, 0 Refill(s) Start Date: 06/10/20 Status: Ordered Completed/Discontinued Medications Medication Drug Class(es) Dates Sig (Normalized) Sig (Original) acetaminophen 500 mg / diphenhydrAMINE hydrochloride 25 mg oral tablet (4 sources) Histamine-1 Receptor Antagonist Start: 08-20-2013 TYLENOL PM EXTRA STRENGTH 500-25 MG TABS As needed DIPHENHYDRAMINE-A PAP (SLEEP) [id number] Patsy Hopkins RN Problems Active Problems Problem Classification Problem Date Documented Da te Episodic/Chronic Asthma (1 source) Asthma 04-11-2019 Chronic Chronic kidney disease (1 source) Chronic kidney disease stage 3 04-11-2019 Chronic Conditions associated with dizziness or vertigo (5 sources) Dizziness; Translations: [Vertigo] Onset: 4 08-20-2013 Episodic Diabetes mellitus without complication (1 source) Prediabetes 05-31-2019 Episodic Disorders of lipid metabolism (5 sources) Hyperlipidemia; Translations: [Hyperlipidemia, unspecified] Onset: 4 08-20-2013 Chronic Esophageal disorders (2 sources) Gastroesophageal reflux disease; Translations: [Gastroesophageal reflux disease with hiatal hernia] 01-18-2019 Chronic Essential hypertension (5 sources) Hypertensive disorder; Translations: [Essential (primary) hypertension] Onset: 4 08-20-2013 Chronic Gastroduodenal ulcer (except hemorrhage) (1 source) H/O: gastric ulcer 04-11-2019 Episodic Inflammation; infection of eye (except that caused by tuberculosis or sexually transmitteddisease) (1 source) Episcleritis 04-30-2020 Episodic Osteoarthritis (1 source) Arthritis 09-09-2013 Chronic Osteoporosis (1 source) Osteoporosis 04-19-2020 Chronic Other bone disease and musculoskeletal deformities (1 source) Somatic dysfunction of cranium 03-14-2019 Episodic Other bone disease and musculoskeletal deformities (7 sources) Segmental and somatic dysfunction 01-18-2019 Episodic Other connective tissue disease (1 source) Achilles tendinitis 04-30-2020 Episodic Other connective tissue disease (1 source) Adhesive capsulitis of shoulder 07-08-2019 Episodic Other gastrointestinal disorders (1 source) Irritable bowel syndrome 04-11-2019 Chronic Other gastrointestinal disorders (1 source) Constipation 07-08-2019 Episodic Other screening for suspected conditions (not mental disorders or infectious disease) (1 source) Decreased renal function 03-14-2019 Episodic Rheumatoid arthritis and related disease (1 source) Rheumatoid arthritis 07-15-2019 Chronic Spondylosis; intervertebral disc disorders; other back problems (5 sources) Backache; Translations: [Low back pain] 06-11-2019 Episodic Syncope (5 sources) Syncope and collapse; Translations: [Vasovagal symptom] Onset: 4 08-21-2013 Episodic Thyroid disorders (5 sources) Hyperthyroidism; Translations: [Thyrotoxicosis, unspecified without thyrotoxic crisis or storm] Onset: 4 11-19-2013 Chronic Unclassified (1 source) Unknown / UNK(Unknown) Onset: 7 Unclassified (1 source) Diverticulitis 09-09-2013 Viral infection (1 source) 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 Past or Other Problems Problem Classification Problem Date Documented Da te Episodic/Chronic Cardiac dysrhythmias (4 sources) Palpitations; Translations: [Palpitations] Onset: 08-20-2013 08-20-2013 Episodic Other lower respiratory disease (8 sources) Dyspnea; Translations: [Chronic cough] Onset: 08-20-2013 08-20-2013 Episodic Other nutritional; endocrine; and metabolic disorders (4 sources) Body mass index (BMI) 26.0-26.9, adult; Translations: [Body mass index (BMI) 26.0-26.9, adult] Onset: 07-31-2014 07-31-2014 Episodic Other upper respiratory disease (4 sources) Posterior rhinorrhea; Translations: [Postnasal drip] Onset: 05-03-2016 05-03-2016 Episodic Thyroid disorders (2 sources) Disorder of thyroid, unspecified; Translations: [Disorder of thyroid, unspecified] Onset: 07-11-2017 Episodic Unclassified (4 sources) FH: Hypertension; Translations: [Family history of ischemic heart disease and other diseases of the circulatory system] 11-18-2013 Episodic Unclassified (1 source) R25.2 Onset: 11-22-2016 Results Test Name Value Interpretation Reference Range Facil ity Vital Signs Date Time Vital Sign Value Performing Clinician Lourdes corley 11-08-2016 11:24-0400 BMI (Body Mass Index) 26.87 kg/m2 [facility] Work Phone: 11-08-2016 11:24-0400 BP Diastolic 80 mm[Hg] [facility] Work Phone: 11-08-2016 11:24-0400 BP Systolic 140 mm[Hg] [facility] Work Phone: 11-08-2016 11:24-0400 Height 166.37 cm Arabella Berriososter [facility] Work Phone: 11-08-2016 11:24-0400 Pulse (Heart Rate) 68 /min Arabella Berriososter [facility] Work Phone: 11-08-2016 11:24-0400 Respiratory Rate 16 /min Arabella Pierce [facility] Work Phone: 11-08-2016 11:24-0400 Weight 74.39 kg Arabella Pierce [facility] Work Phone: 05-03-2016 14:40-0500 BMI (Body Mass Index) 26.87 kg/m2 Harjayla DeFinden [facility] Work Phone: 05-03-2016 14:40-0500 BP Diastolic 70 mm[Hg] Harumi DeFinis [facility] Work Phone: 05-03-2016 14:40-0500 BP Systolic 142 mm[Hg] Harumi DeFinis [facility] Work Phone: 05-03-2016 14:40-0500 BSA (Body Surface Area) 1.83 m2 Harumi DeFinis [facility] Work Phone: 05-03-2016 14:40-0500 Pulse (Heart Rate) 72 /min Harumi DeFinis [facility] Work Phone: 05-03-2016 14:40-0500 Respiratory Rate 16 /min Harumi DeFinis [facility] Work Phone: 05-03-2016 14:40-0500 Weight 74.39 kg Harumi DeFinis [facility] Work Phone: 05-03-2016 13:30-0500 Body Temperature 97.16 [degF] Harumi DeFinis [facility] Work Phone: 05-03-2016 13:30-0500 Body Temperature 97.2 [degF] Harumi DeFinis [facility] Work Phone: 05-03-2016 13:30-0500 Height 166.37 cm Harumi DeFinis [facility] Work Phone: 05-03-2016 13:30-0500 Pulse Oximetry 99 % Harumi DeFinis [facility] Work Phone: 05-03-2016 13:30-0500 Weight 75.45 kg Harumi DeFinis [facility] Work Phone: Encounters Encounter Date Encounter Type Care Provider Facility Start: 06-28-2023 End: 06-28-2023 Patient encounter procedure PHY WO ID REFERRING [facility] Start: 07-11-2017 Ambulatory [facility] Start: 11-22-2016 End: 11-23-2016 Ambulatory [facility] Facility:[facility] Procedures Date Procedure Procedure [...] Start: 08-11-2015 End: 12-02-2015 Brncspsm provocation eval backwinder spmtry w/admn agt [place] Start: 08-11-2015 End: 12-02-2015 Cholesterol [place] S Dominique [place] Start: 07-21-2015 End: 12-02-2015 Follow Up [...] Niels Cordoba MD Start: 07-31-2014 End: 07-31-2014 MM Niels Cordoba MD Start: 11-18-2013 End: 11-08-2016 [...] End: 08-21-2013 Follow Up Appt 6 weeks Niles Cordoba MD Start: 08-21-2013 End: 08-21-2013 MMM [...] End: 11-08-2016 Tilt table evaluation Niels Bellamy Electrocardiographic monitor and recorder, device (physical object) PHY REFERRING Plan of Treatment Date Care Activity Detail Author Start: 11-05-2017 End: 11-05-2017 Appointment Appointment [facility] Work Phone: Start: 11-08-2016 End: 11-08-2016 Follow Up Appt 1 year Follow Up Appt 1 year [facility] Work Phone: Start: 11-08-2016 End: 11-08-2016 PFM PFM [facility] Work Phone: Start: 11-08-2016 End: 11-08-2016 Appointment Appointment [facility] Work Phone: Start: 11-08-2016 End: 11-08-2016 Follow Up Appt 1 year Follow Up Appt 1 year [facility] Work Phone: Start: 11-08-2016 End: 11-08-2016 PFM PFM [facility] Work Phone: Start: 05-03-2016 End: 05-03-2016 Bacteria sputum culture *Sputum Culture [facility] Work Phone: Start: 05-03-2016 End: 05-03-2016 Follow Up Appt 6 months Follow Up Appt 6 months [facility] Work Phone: Start: 05-03-2016 End: 05-03-2016 PFM PFM [facility] Work Phone: Start: 05-03-2016 End: 05-03-2016 Respiratory pathogens DNA and RNA 12b panel - Unspecified specimen by ROSY with probe detection *Respiratory Panel [facility] Phone: Start: 05-03-2016 End: 05-03-2016 Bacteria sputum culture *Sputum Culture [facility] Work Phone: Start: 05-03-2016 End: 05-03-2016 Follow Up Appt 6 months Follow Up Appt 6 months [facility] Work Phone: Start: 05-03-2016 End: 05-03-2016 PFM PFM [facility] Work Phone: Start: 05-03-2016 End: 05-03-2016 Respiratory pathogens DNA and RNA 12b panel - Unspecified specimen by ROSY with probe detection *Respiratory Panel [facility] Work Phone: Start: 10-05-2015 End: 10-05-2015 Follow Up Appt 3 months Follow Up Appt 3 months [facility] Phone: Start: 10-05-2015 End: 10-05-2015 Methanol [Presence] in Blood *METHA Volatiles [facility] Work Phone: Start: 10-05-2015 End: 10-05-2015 Follow Up Appt 3 months Follow Up Appt 3 months [facility] Work Phone: Start: 10-05-2015 End: 10-05-2015 Methanol [Presence] in Blood *METHA [facility]atiles [facility] Work Phone: Start: 08-27-2015 End: 08-27-2015 Cardiovascular function eval w/tilt table w/mntr Tilt Table Test [facility] Work Phone: Start: 08-27-2015 End: 08-27-2015 Follow Up Appt 6 months Follow Up Appt 6 months [facility] Work Phone: Start: 08-27-2015 End: 08-27-2015 PFM PFM [facility] Work Phone: Start: 08-27-2015 End: 08-27-2015 Follow Up Appt 6 months Follow Up Appt 6 months [facility] Work Phone: Start: 08-27-2015 End: 08-27-2015 PFM PFM [facility] Work Phone: Start: 08-27-2015 End: 08-27-2015 Tilt table evaluation Tilt Table Test [facility] Work Phone: Start: 08-11-2015 End: 12-02-2015 Cholesterol Methylcholine inhalation challenge [facility] Work Phone: Start: 08-11-2015 End: 12-02-2015 Cholesterol Methylcholine inhalation challenge [facility] Work Phone: Start: 07-21-2015 End: 12-02-2015 Follow Up Appt 3 months Follow Up Appt 3 months [facility] Work Phone: Start: 07-21-2015 End: 12-02-2015 Pulmonary Function Test - complete Pulmonary Function Test - complete [facility] Work Phone: Start: 07-21-2015 End: 12-02-2015 Follow Up Appt 3 months Follow Up Appt 3 months [facility] Work Phone: Start: 07-21-2015 End: 12-02-2015 Pulmonary Function Test - complete Pulmonary Function Test - complete [facility] Work Phone: Start: 02-22-2015 End: 02-22-2015 Follow Up Appt 6 months Follow Up Appt 6 months [facility] Work Phone: Start: 02-22-2015 End: 02-22-2015 PFM PFM [facility] Work Phone: Start: 02-22-2015 End: 02-22-2015 Follow Up Appt 6 months Follow Up Appt 6 months [facility] Work Phone: Start: 02-22-2015 End: 02-22-2015 PFM PFM [facility] Work Phone: Start: 07-31-2014 End: 07-31-2014 Chest x-ray X-Ray, Chest, PA & Lateral [facility] Work Phone: Start: 07-31-2014 End: 07-31-2014 Echocardiography Echocardiogram (complete) [facility] Work Phone: Start: 07-31-2014 End: 07-31-2014 Follow Up Appt 6 months Follow Up Appt 6 months [facility] Work Phone: Start: 07-31-2014 End: 07-31-2014 MMM MMM [facility] Work Phone: Start: 07-31-2014 End: 07-31-2014 Chest x-ray X-Ray, Chest, PA & Lateral [facility] Work Phone: Start: 07-31-2014 End: 07-31-2014 Echocardiography Echocardiogram (complete) [facility] Work Phone: Start: 07-31-2014 End: 07-31-2014 Follow Up Appt 6 months Follow Up Appt 6 months [facility] Work Phone: Start: 07-31-2014 End: 07-31-2014 MMM MMM [facility] Work Phone: Start: 11-18-2013 End: 11-08-2016 Follow Up Appt 3 months Follow Up Appt 3 months [facility] Work Phone: Start: 11-18-2013 End: 11-18-2013 Follow Up Appt Other Follow Up Appt Other [facility] Work Phone: Start: 11-18-2013 End: 11-08-2016 PFM PFM [facility] Work Phone: Start: 11-18-2013 End: 11-08-2016 Follow Up Appt 3 months Follow Up Appt 3 months [facility] Work Phone: Start: 11-18-2013 End: 11-18-2013 Follow Up Appt Other Follow Up Appt Other [facility] Work Phone: Start: 11-18-2013 End: 11-08-2016 PFM PFM [facility] Work Phone: Start: 08-22-2013 End: 08-22-2013 Nuclear stress test -exercise Nuclear stress test -exercise [facility] Phone: Start: 08-22-2013 End: 08-28-2013 Nuclear stress test -exercise Nuclear stress test -exercise [facility] Work Phone: Start: 08-21-2013 End: 08-21-2013 *BMP *BMP [facility] Work Phone: Start: 08-21-2013 End: 08-21-2013 *CBC with Differential *CBC with Differential [facility] Phone: Start: 08-21-2013 End: 08-21-2013 Cardiovascular function eval w/tilt table w/mntr Tilt Table Test [facility] Phone: Start: 08-21-2013 End: 08-21-2013 Ecg routine ecg w/least 12 lds w/i&r EKG (In office) [facility] Phone: Start: 08-21-2013 End: 08-21-2013 Echocardiography Echocardiogram (complete) [facility] Phone: Start: 08-21-2013 End: 08-21-2013 Follow Up Appt 6 weeks Follow Up Appt 6 weeks [facility] Phone: Start: 08-21-2013 End: 08-21-2013 MMM MMM [facility] Phone: Start: 08-21-2013 End: 08-21-2013 Thyroid stimulating hormone (TSH) *TSH [facility] Phone: Start: 08-21-2013 End: 08-21-2013 Thyroxine (T4) *T4 (Total) [facility] Phone: Start: 08-21-2013 End: 08-21-2013 Xtrnl mobile cv telemetry w/i&report 30 days 30 Day Holter Monitor [facility] Phone: Start: 08-21-2013 End: 08-21-2013 *BMP *BMP [facility] Work Phone: Start: 08-21-2013 End: 08-21-2013 *CBC with Differential *CBC with Differential [facility] Work Phone: Start: 08-21-2013 End: 08-27-2013 Echocardiography Echocardiogram (complete) [facility] Work Phone: Start: 08-21-2013 End: 08-21-2013 Electrocardiogram, complete EKG (In office) [facility] Work Phone: Start: 08-21-2013 End: 08-21-2013 Follow Up Appt 6 weeks Follow Up Appt 6 weeks [facility] Work Phone: Start: 08-21-2013 End: 08-21-2013 MMM MMM [facility] Work Phone: Start: 08-21-2013 End: 08-21-2013 Remote 30 day ecg rev/report 30 Day Holter Monitor [facility] Work Phone: Start: 08-21-2013 End: 08-21-2013 Thyroid stimulating hormone (TSH) *TSH [facility] Work Phone: Start: 08-21-2013 End: 08-21-2013 Thyroxine (T4) *T4 (Total) [facility] Work Phone: Start: 08-21-2013 End: 08-21-2013 Tilt table evaluation Tilt Table Test [facility] Work Phone: Payers Date Payer Category Payer Private Health Insurance [id number] Private Health Insurance Social History Date Type Detail Facility Start: 12-09-2018 Tobacco smoking status Never s moked tobacco (finding) [facility] Sex Assigned At Female [facility] Clinical Note 06-28-2023 Note Date & Type Note Facility 06-28-2023 Note ORIGINAL EXAMINATION: MRI OF THE LUMBAR SPINE WITHOUT CONTRAST06/28/2023 9:07 am TECHNIQUE: Multiplanar multisequence MRI of the lumbar spine was performed without the administration of intravenous contrast. COMPARISON: Lumbar radiographs 04/12/2020. HISTORY: ORDERING SYSTEM PROVIDED HISTORY: Reason for Exam: RADICULOPATHY, LUMBAR REGION. FINDINGS: OSSEOUS STRUCTURES: There are 5 lumbar type vertebral bodies. Alignment is normal. Vertebral body heights are maintained. No fracture or dislocation is evident. Bone marrow signal is within normal limits. No marrow replacing osseous lesion. T12 vertebral body hemangioma. Preserved disc spaces. Very mild multilevel degenerative disc signal. Small endplate osteophytes of the upper lumbar spine and thoraco lumbar junction. T12-L1: No stenosis. L1-L2: No stenosis. L2-L3: No stenosis. L3-L4: No stenosis. Minimal facet arthrosis. L4-L5: A mild asymmetric disc bulge, most pronounced of the left foraminal zone results in no significant canal or foraminal stenosis. There is a tiny central annular fissure. L5-S1: A mild asymmetric disc bulge, most pronounced of the right extraforaminal zone results in no significant canal or foraminal stenosis. Extraforaminal disc material contacts the right L5 nerve. Incompletely visible and evaluated symmetric sacroiliac joint degenerative changes. SOFT TISSUES: The conus medullaris terminates at L1. The visualized spinal cord is normal in signal and morphology. The cauda equina is grossly unremarkable. Multiple bilateral renal cysts. Associated soft tissues are grossly unremarkable. IMPRESSION: 1. No acute finding. No significant stenosis at any level. Mild multilevel disc bulges. 2. Findings at L5-S1 should be correlated with symptoms in a right L5 nerve distribution. Interpreted by: Guillaume Nails DO Preliminary Report By: Guillaume Nails DO Electronically signed By Guillaume Nails DO Dictated Date: 06/28/2023 1:45:20 PM Prelim Date: 06/28/2023 1:53:46 PM Sign Date: 06/28/2023 1:53:46 PM Ordering Provider: PHY REFERRING [facility] Evaluation + Plan note Note Date & Type Note Facility Evaluation + Plan note No data available for this section [facility] Hospital Discharge instructions Note Date & Type Note Facility Hospital Discharge instructions No data available for this section [facility] Progress note Note Date & Type Note Facility Progress note No data available for this section [facility] Summary Purpose Family History No Family History Records FoundNo Family History Records FoundNo Family History Records Found No data available for this section Advance Directives No Advanced Directives Records FoundNo Advanced Directives Records FoundNo Advanced Directives Records Found Additional Source Comments INFORMATION SOURCE (unrecogn ized section and content) DATE CREATED AUTHOR AUTHOR'S ORGANIZ ATION 11/14/2017 [facility] DATE CREATED AUTHOR AUTHOR'S ORGANIZ ATION 06/16/2020 [facility] ([place]) Patient Care team informatio n (unrecognized section and content) Care Team Personnel Name: Alba Cook Clerpam Valente PT Position: P3 Scheduling - Home Staging Specialist Advanced Member Role: Other Name: YAMILET KURTZ DO Member Role: Primary Care Physician Address: Address: [address] [place] [id number] Care Team Related Persons Name: CRUZ DEVLIN Address: [address] [place] [address] [phone] FOR RECORDS PERTAINING TO PATIENTS WHO ARE [...] BE BASED ON THE PRIMARY CLINICAL RECORDS. [facility]. provides no warranty or guarantee of the accuracy or completeness of information in this document.
== END | disposition home or self-care (01) ==
LOC: BFHLAB 11:53
PROVIDERS: PCP Family Medicine; Visit Provider Family Medicine
DX: I12.9 Hypertensive chronic kidney disease with stage 1 through stage 4 chronic kidney disease, or unspecified chronic kidney disease (principal); N18.31 Chronic kidney disease, stage 3a; E05.90 Thyrotoxicosis, unspecified without thyrotoxic crisis or storm
CPT/HCPCS: 36415; 80048; 84439; 84443

== ENCOUNTER → 2023-08-10 | Outpatient (CLI) | payer MEDICAID, SELFPAY ==
[2023-08-10 18:10] LABS: Anion Gap 8 (5-15); BUN 13 mg/dL (7-18); BUN/Creat Ratio 13.4 RATIO (10-20); Calcium,Total 9.8 mg/dL (8.5-10.1); Chloride 103 mmol/L (98-107); Creatinine, Serum 0.97 mg/dL (0.55-1.02); EST Glomerular Filtration Rate 60 mL/min (>60); Est Glom Filt Rate - Afr Amer 72 mL/min (>60); Glucose 104 mg/dL (74-106); Potassium 3.8 mmol/L (3.5-5.1); Sodium Level 139 mmol/L (136-145); T4 Free Direct 0.78 ng/dL (0.76-1.46); Thyroid Stim Hormone (TSH) 1.64 uIU/mL (0.358-3.74)
== END | disposition home or self-care (01) ==
LOC: MTLAB 14:16
PROVIDERS: PCP Family Medicine; Referring Provider Family Medicine; Visit Provider Family Medicine
DX: I10 Essential (primary) hypertension (principal); E05.90 Thyrotoxicosis, unspecified without thyrotoxic crisis or storm
CPT/HCPCS: 36415; 80048; 84439; 84443

== ENCOUNTER → 2023-10-02 | Outpatient (CLI) | payer MEDICAID, SELFPAY ==
[2023-10-02 13:21] LABS: Anion Gap 7 (5-15); BUN 14 mg/dL (7-18); BUN/Creat Ratio 12.4 RATIO (10-20); Calcium,Total 9.7 mg/dL (8.5-10.1); Chloride 101 mmol/L (98-107); Creatinine, Serum 1.13 mg/dL (0.55-1.02); EST Glomerular Filtration Rate 50 mL/min (>60); Est Glom Filt Rate - Afr Amer 61 mL/min (>60); Glucose 100 mg/dL (74-106); Potassium 4.4 mmol/L (3.5-5.1); Sodium Level 134 mmol/L (136-145); T4 Free Direct 0.85 ng/dL (0.76-1.46); Thyroid Stim Hormone (TSH) 2.21 uIU/mL (0.358-3.74)
== END | disposition home or self-care (01) ==
LOC: BFHLAB 10:20
PROVIDERS: PCP Family Medicine; Referring Provider Family Medicine; Visit Provider Family Medicine
DX: E05.90 Thyrotoxicosis, unspecified without thyrotoxic crisis or storm (principal); N18.31 Chronic kidney disease, stage 3a
CPT/HCPCS: 36415; 80048; 84439; 84443

== ENCOUNTER 2023-10-26 10:02 | Outpatient (CLI) | payer MEDICAID, SELFPAY ==
[2023-10-26 10:10] VITALS: BP 140/69; PULSE 73; RESP 16; TEMP 36.2; O2SAT 99; BMI 26.2
[2023-10-26] MEDS: DENOSUMAB 60 MG/ML SC (10:14)
== END 2023-10-26 23:59 | disposition home or self-care (01) ==
LOC: MEDOUTP 10:03
PROVIDERS: PCP Family Medicine; Referring Provider Family Medicine; Visit Provider Family Medicine
DX: M81.0 Age-related osteoporosis without current pathological fracture (principal)
CPT/HCPCS: 96372; J0897

== ENCOUNTER → 2023-10-30 | Outpatient (CLI) | payer MEDICAID, SELFPAY ==
[2023-10-30 12:48] LABS: Free T3 2.6 pg/mL (2.18-3.98); T4 Free Direct 0.77 ng/dL (0.76-1.46); Thyroid Stim Hormone (TSH) 2.78 uIU/mL (0.358-3.74)
== END | disposition home or self-care (01) ==
LOC: BFHLAB 10:27
PROVIDERS: PCP Family Medicine; Referring Provider Family Medicine; Visit Provider Family Medicine
DX: E05.90 Thyrotoxicosis, unspecified without thyrotoxic crisis or storm (principal)
CPT/HCPCS: 36415; 84439; 84443; 84481

== ENCOUNTER → 2023-11-16 | Outpatient (CLI) | payer MEDICAID, SELFPAY | END | disposition home or self-care (01) | PROVIDERS: PCP Family Medicine; Referring Provider Family Medicine; Visit Provider Family Medicine | DX: R30.0 Dysuria (principal) | CPT/HCPCS: 87077; 87086; 87088; 87186 ==

== ENCOUNTER → 2024-03-05 | Outpatient (CLI) | payer MEDICAID, SELFPAY | END | disposition home or self-care (01) | LOC: BFHLAB 09:01 → LABSPEC 09:03 | PROVIDERS: PCP Family Medicine; Referring Provider Family Medicine; Visit Provider Family Medicine | DX: R30.0 Dysuria (principal) | CPT/HCPCS: 87086 ==

== ENCOUNTER → 2024-04-04 | Outpatient (CLI) | payer MEDICAID, SELFPAY ==
[2024-04-04 17:54] LABS: Anion Gap 5 (5-15); BUN 19 mg/dL (7-18); BUN/Creat Ratio 17.3 RATIO (10-20); Calcium,Total 9.6 mg/dL (8.5-10.1); Chloride 105 mmol/L (98-107); EST Glomerular Filtration Rate 52 mL/min (>60); Est Glom Filt Rate - Afr Amer 62 mL/min (>60); Glucose 103 mg/dL (74-106); Potassium 4.2 mmol/L (3.5-5.1); Sodium Level 138 mmol/L (136-145); T4 Free Direct 0.81 ng/dL (0.76-1.46)
== END | disposition home or self-care (01) ==
LOC: BFHLAB 15:19
PROVIDERS: PCP Family Medicine; Referring Provider Family Medicine; Visit Provider Family Medicine
DX: I12.9 Hypertensive chronic kidney disease with stage 1 through stage 4 chronic kidney disease, or unspecified chronic kidney disease (principal); N18.31 Chronic kidney disease, stage 3a; E05.90 Thyrotoxicosis, unspecified without thyrotoxic crisis or storm
CPT/HCPCS: 36415; 80048; 84439; 84443

== ENCOUNTER → 2024-05-06 | Outpatient (CLI) | payer MEDICAID, SELFPAY ==
--- NOTE | 2024-05-06 08:46 | BD_ITS ---
STUDY: DUAL ENERGY X-RAY ABSORPTIOMETRY / DXA REASON FOR EXAM: Female, 74 years old. M81.0 TECHNIQUE: Bone Mineral Density (BMD) measurements of lumbar spine and bilateral hips were obtained. COMPARISON: Comparison is made with prior study April 12, 2022. FINDINGS: Lumbar Spine (L1-L4): g/cm2 (0.757) / T-score (-3.1) / Z-score (-0.6) Findings are suggestive of osteoporosis with a high fracture risk. Left Femur Total: g/cm2 (0.689) / T-score (-2.1) / Z-score (-0.3) Left Femoral Neck: g/cm2 (0.616) / T-score (-2.1) / Z-score (-0.1) Right Femur Total: g/cm2 (0.699) / T-score (-2.0) / Z-score (-0.2) Right Femoral Neck: g/cm2 (0.566) / T-score (-2.5) / Z-score (-0.5) The T-Scores on the most recent prior examination were: Lumbar Spine (L1-L4): There has been improvement of bone density since the previous examination. Left Femur Total: which represents a worsening of 3%. Right Femur Total: which represents a worsening of 2.9%. BD/Dexa Bone Density Study IMPRESSION: The patient is considered osteoporotic as outlined below according to World [employer] Organization (WHO) criteria with a high fracture risk. There has been worsening of bone density since the previous examination. Reference Information: The T-score is the number of standard deviations above or below the standard which is normal for young adults at their peak bone mineral density. The World Health Organization (WHO) interprets the T-scores as follows: Above -1 Normal bone density Between -1 and -2.5 Osteopenia Equal to / or below -2.5 Osteoporosis As a practical clinical guideline, osteopenia may be graded as follows: Mild -1 through -1.5 Moderate -1.6 through -2.0 Severe -2.1 through -2.4 The Z-score is the number of standard deviations above or below age-matched controls. A Z-score of less than -1.5 would be considered abnormal. References: 1. NIH Osteoporosis and Related Bone Diseases www osteo.org 2. International Society for Clinical Densitometry www iscd.org 3. National Osteoporosis Foundation www nof.org Electronically Signed: Khadar Ponce MD at 11:56 EST ,
== END | disposition home or self-care (01) ==
LOC: OPBD 08:17
PROVIDERS: PCP Family Medicine; Referring Provider Family Medicine; Visit Provider Family Medicine
DX: M81.0 Age-related osteoporosis without current pathological fracture (principal)
CPT/HCPCS: 77080

== ENCOUNTER 2024-05-30 08:51 | Outpatient (CLI) | payer MEDICAID, SELFPAY ==
[2024-05-30 09:03] VITALS: BP 137/59; PULSE 77; RESP 18; TEMP 35.9; O2SAT 97; BMI 26.9
[2024-05-30] MEDS: DENOSUMAB 60 MG/ML SC (09:07)
== END 2024-05-30 23:59 | disposition home or self-care (01) ==
LOC: MEDOUTP 08:52
PROVIDERS: PCP Family Medicine; Referring Provider Family Medicine; Visit Provider Family Medicine
DX: M81.0 Age-related osteoporosis without current pathological fracture (principal)
CPT/HCPCS: 96372; J0897

== ENCOUNTER → 2024-07-04 | Outpatient (CLI) | payer MEDICAID, SELFPAY ==
[2024-07-04 13:09] LABS: Anion Gap 5 (5-15); BUN 13 mg/dL (7-18); BUN/Creat Ratio 11.9 RATIO (10-20); Calcium,Total 9.7 mg/dL (8.5-10.1); Chloride 106 mmol/L (98-107); Creatinine, Serum 1.09 mg/dL (0.55-1.02); EST Glomerular Filtration Rate 52 mL/min (>60); Est Glom Filt Rate - Afr Amer 63 mL/min (>60); Glucose 112 mg/dL (74-106); Potassium 4.2 mmol/L (3.5-5.1); Sodium Level 138 mmol/L (136-145)
== END | disposition home or self-care (01) ==
PROVIDERS: PCP Family Medicine; Referring Provider Family Medicine; Visit Provider Family Medicine
DX: I12.9 Hypertensive chronic kidney disease with stage 1 through stage 4 chronic kidney disease, or unspecified chronic kidney disease (principal); N18.31 Chronic kidney disease, stage 3a; E05.90 Thyrotoxicosis, unspecified without thyrotoxic crisis or storm
CPT/HCPCS: 36415; 80048; 84439; 84443

== ENCOUNTER → 2024-10-10 | Outpatient (CLI) | payer MEDICAID, SELFPAY ==
[2024-10-10 12:33] LABS: Absolute Lymphocyte Count 2.65 X10^3/uL (0.83-4.51); Absolute Neutrophil Count 7.2 X10^3/uL (2.0-7.7); Basophil# 0.08 X10^3/uL; Basophil% 0.7 % (0-1); Eosinophil# 0.06 X10^3/uL; Eosinophils% 0.6 % (0-5); Hematocrit 45.2 % (37-47); Hemoglobin 14.7 g/dL (12.0-15.0); Lymphocyte # 2.65 X10^3/ul (0.83-4.51); Lymphocyte % 24.3 % (19-41); Mean Corp Hgb Conc 32.5 g/dL (32-36); Mean Corpuscular Hgb 29.5 pg (27.0-32.0); Mean Corpuscular Volume 90.8 fL (81-99); Mean Platelet Vol. 9.8 fl (6.2-12.0); Monocyte# 0.87 X10^3/uL; NRBC Flagged by Analyzer 0 % (0-5); Platelet Count 383 K/mm3 (150-450); RBC Distribution Width SD 43.1 fl (35.1-43.9); Red Blood Count 4.98 M/mm3 (4.2-5.4); White Blood Count 10.9 K/mm3 (4.4-11.0)
[2024-10-10 12:56] LABS: Anion Gap 12 (5-15); BUN 18 mg/dL (4-19); BUN/Creat Ratio 18.3 RATIO (10-20); Calcium,Total 9.6 mg/dL (7.6-11.0); Carbon Dioxide 25.1 mmol/L (21.0-32.0); Chloride 104 mmol/L (98-108); Cholesterol 236 mg/dL (<=200); Creatinine, Serum 0.98 mg/dL (0.70-1.20); EST Glomerular Filtration Rate 61 (>60); Glucose 98 mg/dL (70-99); High Density Lipoprotein 51 mg/dL; Low Density Lipoprotein Calc. 145 mg/dL; Potassium 4.6 mmol/L (3.3-5.1); Sodium Level 140 mmol/L (133-145); Triglycerides 202 mg/dL; Very Low Density Lipoprotein 40 mg/dL (5-40); cholesterol:hdl ratio screen 4.64
== END | disposition home or self-care (01) ==
LOC: MTLAB 10:42
PROVIDERS: PCP Family Medicine; Referring Provider Family Medicine; Visit Provider Family Medicine
DX: I10 Essential (primary) hypertension (principal); E78.5 Hyperlipidemia, unspecified; E05.90 Thyrotoxicosis, unspecified without thyrotoxic crisis or storm
CPT/HCPCS: 36415; 80048; 80061; 84439; 84443; 85025

== ENCOUNTER → 2024-11-07 | Outpatient (CLI) | payer MEDICAID, SELFPAY ==
--- NOTE | 2024-11-07 12:48 | RAD_ITS ---
PROCEDURE: ABDOMEN SINGLE VIEW 11/07/2024 REASON FOR EXAM: ABD PAIN TECHNIQUE: ABDOMEN SINGLE VIEW COMPARISON: None. FINDINGS: Moderate amount of fecal residue in the large bowels. Normal visualized lung bases. There is an unremarkable bowel gas pattern. There is no demonstrated free abdominal air. Normal visualized liver. Normal visualized spleen. Normal visualized kidneys. The soft tissue structures of the pelvis are unremarkable. Mild diffuse spondylosis. RAD/Abdomen Single View IMPRESSION: Moderate amount of fecal residue in the large bowels. Reading [facility]
[2024-11-07 15:39] LABS: Absolute Lymphocyte Count 2.34 X10^3/uL (0.83-4.51); Basophil# 0.07 X10^3/uL; Basophil% 0.8 % (0-1); Eosinophil# 0.09 X10^3/uL; Hematocrit 45.3 % (37-47); Hemoglobin 14.8 g/dL (12.0-15.0); Lymphocyte # 2.34 X10^3/ul (0.83-4.51); Lymphocyte % 25.3 % (19-41); Mean Corp Hgb Conc 32.7 g/dL (32-36); Mean Corpuscular Hgb 29.8 pg (27.0-32.0); Mean Corpuscular Volume 91.1 fL (81-99); Mean Platelet Vol. 10.2 fl (6.2-12.0); Monocyte# 0.71 X10^3/uL; Monocyte% 7.7 % (0-10); NRBC Flagged by Analyzer 0 % (0-5); Neutrophil # 6.01 X10^3/uL (2.7-7.7); Platelet Count 426 K/mm3 (150-450); RBC Distribution Width CV 12.8 % (11.6-14.6); RBC Distribution Width SD 42.9 fl (35.1-43.9); Red Blood Count 4.97 M/mm3 (4.2-5.4); White Blood Count 9.2 K/mm3 (4.4-11.0)
[2024-11-07 16:04] LABS: ALB/GLOB Ratio 1.2 RATIO (0.9-2.4); AST(SGOT) 28 U/L (<=31); Alanine Aminotransfer ALT/SGPT 22 U/L (<=34); Albumin, Serum 4.4 g/dL (3.4-4.8); Alkaline Phosphatase 82 U/L (35-104); Anion Gap 14 (5-15); BUN 13 mg/dL (4-19); BUN/Creat Ratio 13.2 RATIO (10-20); Carbon Dioxide 22.9 mmol/L (21.0-32.0); Chloride 104 mmol/L (98-108); Creatinine, Serum 0.96 mg/dL (0.70-1.20); EST Glomerular Filtration Rate 62 (>60); Globulin 3.7 g/dL (2.2-4.2); Glucose 121 mg/dL (70-99); Potassium 4.3 mmol/L (3.3-5.1); Sodium Level 140 mmol/L (133-145); Total Bilirubin 0.45 mg/dL (0.00-1.30)
== END | disposition home or self-care (01) ==
LOC: BFHLAB 11:35 → MTRAD 12:44
PROVIDERS: PCP Family Medicine; Referring Provider Family Medicine; Visit Provider Family Medicine
DX: R10.9 Unspecified abdominal pain (principal)
CPT/HCPCS: 36415; 74018; 80053; 85025; 86140

== ENCOUNTER 2024-11-28 08:34 | Outpatient (CLI) | payer MEDICAID, SELFPAY ==
[2024-11-28 09:02] VITALS: BP 128/60; PULSE 61; RESP 16; TEMP 36.1; O2SAT 100; BMI 27.3
[2024-11-28] MEDS: DENOSUMAB 60 MG/ML SC (09:06)
== END 2024-11-28 23:59 | disposition home or self-care (01) ==
LOC: MEDOUTP 08:35
PROVIDERS: PCP Family Medicine; Referring Provider Family Medicine; Visit Provider Family Medicine
DX: M81.0 Age-related osteoporosis without current pathological fracture (principal)
CPT/HCPCS: 96372; J0897

== ENCOUNTER → 2025-02-27 | Outpatient (CLI) | payer MEDICAID, SELFPAY ==
[2025-02-27 19:01] LABS: Free T3 3.0 pg/mL (2.18-3.98)
== END | disposition home or self-care (01) ==
LOC: MTLAB 14:35
PROVIDERS: PCP Family Medicine; Referring Provider Family Medicine; Visit Provider Family Medicine
DX: E05.90 Thyrotoxicosis, unspecified without thyrotoxic crisis or storm (principal)
CPT/HCPCS: 36415; 84439; 84443; 84481